=== PATIENT | female | born 1970 | race African-American/Black ===

== ENCOUNTER 2017-02-08 13:55 | Inpatient (IN) ==
[~2017-02-08 13:55] MED LIST: DIAZEPAM 5 MG TABLET PO ONE; SODIUM CHLORIDE 0.9% 1,000 ML IV SCH; ceFAZolin 1,000 MG VIAL IRRIG ONE; diphenhydrAMINE CAP 25 MG CAPSULE PO ONE
[2017-02-08] MEDS ORDERED: diphenhydrAMINE CAP 25 MG CAPSULE ONE (14:31)
[2017-02-08] MEDS ORDERED: ceFAZolin 1,000 MG VIAL ONE ×2 (14:31→16:49)
[2017-02-08] MEDS ORDERED: DIAZEPAM 5 MG TABLET ONE (14:31)
--- NOTE | 2017-02-08 14:31 | Event Note ---
Patient with sick sinus syndrome with severe significant bradycardia that is chronotropic deficient. Patient needs dual-chamber pacemaker system implantation. I have again reviewed this procedure with the patient reviewing the case procedure had be carried out and the risk. I discussed pacemaker implantation procedure with the patient. I reviewed with her the indications of the procedure as well as the basis of how the procedure itself would be carried out. I also reviewed with them the possible risks which include but not necessarily limited to surgical site bruising pain swelling or pocket hematoma that may require surgical evacuation. Discussed that the pain, swelling, bruising could be significant. Also discussed the possibility of surgical site or pocket infection that may require oral or IV antibiotics or even the possibility of surgical drainage of the pocket or even removal of the pacemaker system. Also discussed the possibility of hemothorax or pneumothorax that may require chest tube and possible blood transfusion. Also discussed the possibility of myocardial perforation that may lead to pericardial tamponade and the need for pericardiocentesis and blood transfusion. Questions were answered. She voices understanding and agrees to proceed.
--- NOTE | 2017-02-08 14:32 | History and Physical Update ---
Sedation H&P Update - History and Physical H&P was reviewed, the patient examined and there: are no changes in the patients condition since last H&P was completed. - Dictation Physical: refer to scanned H&P - Physical Exam Mental Status: alert and oriented Heart: regular rate and rhythm (Bradycardic) Lung: clear to auscultation Abdomen: within normal limits History and Physical Changes: None - Sedation Plan for Sedation: moderate Patient Consent: Procedure disscussed with patient and patinet has consented., Risks and benefits were discussed with patient,including infection,, bleeding, injury to surrounding structures, seizure, temporary nerve, Patient understands and accepts potential risks/benefits and agrees to, proceed. ASA Class: III Airway Assessment: Class III: Soft palate, base of uvula visible
--- NOTE | 2017-02-08 14:44 | XRay Report ---
Portable chest. Indication: Respiratory preoperative. Comparison: December 15, 2011. The heart and mediastinal contours are unremarkable. The pulmonary vasculature is normal. There is no consolidation, pneumothorax, or pleural effusion. The osseous structures are unremarkable. Impression: No abnormality is seen. PROCEDURE INTERPRETED AT [facility] DEPARTMENT OF RADIOLOGY Final Report Signed by: Dr. Tiffany Gee
[2017-02-08] MEDS ORDERED: MIDAZOLAM 2 MG/2 ML VIAL ONE ×3 (16:47→17:22)
[2017-02-08] MEDS ORDERED: fentaNYL 100 MCG/2 ML VIAL ONE (16:47)
[2017-02-08] MEDS ORDERED: LIDOCAINE 1% 20 ML VIAL ONE ×2 (16:47→18:04)
[2017-02-08] MEDS ORDERED: HYDROmorphone 2 MG/1 ML VIAL ONE ×2 (17:03→17:34)
[2017-02-08] MEDS ORDERED: diphenhydrAMINE 50 MG/1 ML VIAL ONE (17:22)
[2017-02-08] MEDS ORDERED: TISSUE ADHESIVE 1 EACH APPLICATOR TOP ONE (18:02)
[2017-02-08] MEDS ORDERED: ACETAMINOPHEN 325 MG TABLET PO PRN (18:35)
--- NOTE | 2017-02-08 18:35 | Operative Note ---
Date of procedure: 02/08/17 Procedure Preformed: Dual-chamber pacemaker system implantation. Surgeon / Physician: Rg Jameson Surgical Resident: Sara Brito Post-op diagnosis: same Findings: Patient with sick sinus syndrome with severe bradycardia and abnormal chronotropic response. Specimens: none sent Estimated blood loss: minimal Condition: stable Anesthesia: local, conscious sedation Disposition: floor
[2017-02-08] MEDS ORDERED: ALUMINUM/MAGNES/SIMETH MAX STR 30 ML UDCUP PO PRN (18:38)
--- NOTE | 2017-02-08 18:51 | Cardiac Pacemaker ---
- Preoperative diagnosis Date of Procedure:: 02/08/17 Preoperative Diagnosis: Documented nonreversible symptomatic bradycardia due to , sinus node dysfunction Pre-op Diagnosis: Sick sinus syndrome due to sinus node dysfunction with symptomatic bradycardia and inappropriate chronotropic response. Post-op diagnosis: same Procedure: History: Patient with persistent fatigue and dyspnea on exertion found to have severe bradycardia secondary sick sinus syndrome with inappropriate chronotropic response. Pre-Op diagnosis: Sick sinus syndrome with significant symptomatic bradycardia and inappropriate chronotropic response. Postop diagnosis: Same Procedures: 1. Left subclavian venogram. 2. Fluoroscopic positioning of right atrial and right ventricular leads. 3. Threshold testing of right atrial and right ventricular leads. 4. Surgical implantation dual-chamber pacemaker left chest. Contrast: Visipaque 10 ml. Medications: Preoperative Benadryl and Valium given orally. Lidocaine 1% SQ 50 ml; Versed 6 mgms total IVP; fentanyl 100 mcgs total IVP, Dilaudid 4 mg IVP, Benadryl 50 mg IVP, Ancef 1 gm IVPB, Ancef flush. Estimated blood loss: minimal Sponge count: Correct Pacemaker equipment: 1. Pacemaker generator: Nanoogo Advisa DR MRI, model# [id number], serial#[id number]. 2. Atrial lead: Medtronic model#5076-52, serial #[id number]. This is a bipolar active fixation lead. Sensed P-wave is 4.9 mv. At a pulse width of 0.5 ms the threshold is 1.0 volts, current 1.1 mA, resistance 998 ohms, slew rate 0.9 . 3. Ventricular lead: Medtronic model#5076-58, serial#[id number]. This is a bipolar active fixation lead. Sensed R-wave is 11.9 mv. At a pulse width of 0.5 ms the threshold is 0.4 volts, current 0.4 mA, resistance 900 ohms, slew rate 3.9 . Discription of procedure: After informed consent the patient was given preoperative medication. They were then brought to the catheterization laboratory where their upper chest was prepped and draped in the usual sterile fashion. Patient then received IV sedation. Fluoroscopy and cinematography was used to obtain a left subclavian venogram for mapping. Local anesthesia with lidocaine below the left clavicle was obtained. Sharp dissection with scalpel was then used to cut through the skin and subcutaneous tissue to the pectoralis fascia. The Metzenbaums scissors were then used to create a superior and inferior pocket with also using blunt dissection. Antibiotic sponge was placed in the pocket at this time. At this point using fluoroscopy and the subclavian venogram the subclavian vein was cannulated using needlestick and guidewires. Sheaths were then placed into the vein. Through the medial sheath the ventricular lead was advanced, through the lateral sheath the atrial lead was advanced. Under fluoroscopy the right ventricular lead was advanced into the RV outflow track and then positioned into the ventricle into a good position. Thresholds were good and they remained stable. The atrial lead was then positioned and obtained good spot with good thresholds that remained stable. Sheaths were then peeled away. The leads were then sutured in position using 2-0 Ethibond with 2 stitches on each sleeve. Antibiotic sponge was removed from the pocket and the pocket irrigated with antibiotic solution. Stylettes were completely removed from the leads and final thresholds were measured that remained stable. Pacemaker generator was then connected to the ventricular and atrial lead. Each lead was identified by its serial number and then placed into the appropriate header position. Each header set screw was tightened on the appropriate lead and then each lead was tugged on demonstrating it was well seated. Counts were correct. Pacemaker generator was then placed into the pocket and sutured in position with one stitch of 2-0 Ethibond. Pacemaker pocket was then closed using 2 layers of 3-0 Vicryl and one subreticular layer of 4-0 Vicryl. Exofin was used to seal the wound. Patient, tolerated the procedure well and there were no immediate complications. Patient was returned to their room. Implants: See above Anesthesia: local, moderate conscious sedation Surgeon / Physician: Rg Jameson Mill Helper: other (Sara RIVERA) Estimated blood loss: minimal Specimens: none sent Condition: stable Disposition: floor - Medications / Follow-up
--- NOTE | 2017-02-08 18:56 | Discharge Summary ---
<Rg Jameson - Last Filed: 02/08/17 18:53> Hospital Course - Hospital Course Hospital Course: Admitted February 08, 2017 for elective PPM implantation performed by Dr. Jameson. The following procedure performed: Procedures: 1. Left subclavian venogram. 2. Fluoroscopic positioning of right atrial and right ventricular leads. 3. Threshold testing of right atrial and right ventricular leads. 4. Surgical implantation dual-chamber pacemaker left chest. Tolerated procedure well and was returned to telemetry in stable condition. Post-operatively, developed large left pneumothorax requiring chest tube insertion, performed by Dr. Jewell. Lung expansion occurred quickly, chest tube removed after three days. Repeat CXR after chest tube removal revealed resolve of pneumothorax. Patient is anxious for release home. Having felt she met maximal medical therapy, patient is being discharged home in stable condition. One week follow-up appointment with Dr. Jameson to include interrogation of pacemaker, repeat chest x-ray. F/U appointment [address] Jewell with CXR RE: left pneumothorax Patient's blood pressure tolerated introduction of Coreg 6.25 mg orally twice daily for systolic blood pressure averaging 140s-150s. Cardiac discharge medications include the following: Coreg 6.25 mg p.o. twice daily (new) She will resume her other preadmission, noncardiac medications - Time spent with patient Time with patient DS: Greater than 30 minutes Diagnosis - Discharge Diagnosis (1) Sick sinus syndrome due to SA node dysfunction Status: Acute (2) Bradycardia Status: Acute (3) Chronotropic incompetence with sinus node dysfunction Status: Acute (4) Lupus (systemic lupus erythematosus) Status: Chronic Specialty Discharge - Follow Up or Referrals Follow up with: Wesley Jewell MD [Physician] - (F/U appointment 3 days with CXR RE: left pneumothorax) Rg Jameson MD [Physician] - 03/05/17 2:15 pm (Follow-up in 1-2 weeks with pacemaker interrogation) Discharge Plan - Discharge Data Disposition: Disch To Home/Self Care Condition at Discharge: Stable Discharge Diet: advance to your usual diet Activity: other (Do not raise left hand above she left shoulder or reach out from shoulder. Use immobilizer as prescribed.) Hygiene: other (Do not get pacemaker site wet for 4 days. May then shower in a manner so that water briefly runs over but does not directly strike the pacemaker site.) Weight Bearing at Discharge: full weight bearing Driving: not for (2 weeks) Contact your physician if you experience:: fever over 101, Redness or swelling, Shortness of breath, Bleeding, pain uncontrolled by pain medications Wound / Dressing Care Instructions: Do not apply any ointments or dressings to the pacemaker wound unless instructed to do so. Keep dry and then use water over the wound is described above. - Discharge Medications New Carvedilol [Coreg] 6.25 mg PO BID #60 tablet Continue Zolpidem Tartrate [Ambien] 10 mg PO BEDTIME Albuterol Sulfate [Ventolin HFA] 2 puff INH Q4-6H PRN PRN Reason: Shortness Of Breath/Wheezing Hydrocodone/Acetaminophen [[place] 10-325 Tablet] 1 each PO TID Levothyroxine Tab [Synthroid Tab] 100 mcg PO DAILY Gabapentin 600 mg PO TID LORazepam TAB [Ativan Tab] 1 mg PO BID Omeprazole 20 mg PO DAILY Carisoprodol 350 mg PO QID - Follow Up or Referral Follow Up: Wesley Jewell MD [Physician] - (F/U appointment 3 days with CXR RE: left pneumothorax) Rg Jameson MD [Physician] - 03/05/17 2:15 pm (Follow-up in 1-2 weeks with pacemaker interrogation) - Forms/Instructions Exam - Constitutional Vitals: Period Temp Pulse Resp BP Sys/Heredia Pulse Ox Last 24 Hr 96.1 F-97.9 F 66-85 16-20 133-175/69-84 96-99 Exam: General appearance: normal weight, no acute distress HEENT exam: normal inspection, atraumatic Neck exam: normal inspection no JVD. No carotid bruit. Trachea is in midline Respiratory/lungs exam: clear to auscultation bilaterally good air movement. Cardiovascular exam: regular rate and rhythm, no murmur or gallop or rub. No precordial lift. Chest wall exam: Left chest pacemaker site looks good and stable. GI/Abdominal exam: normal bowel sounds, soft, nontender, no abdominal bruits or pulsatile masses. Extremeties/musculoskeletal: normal inspection without edema or cyanosis. Neurological exam: alert, oriented X3, no focal deficits Psychiatric exam: normal affect, normal mood. Cognitive function is grossly normal. Skin exam: normal color, warm Discharge Results Procedures and tests throughout hospitalization: Pending Orders 02/12/17 16:00 XR chest 2V Routine Dual-chamber pacemaker system implantation successfully DS: Provider Date of admission: 02/08/2017 Primary care physician: . No PCP Attending physician on admission: Dr. Romeo Jameson Consults: 02/09/17 06:43 Consult to Physician [CONS] Routine Comment: Left pneumothorax Consulting Provider: Consult to Specialist Group: Surgery When should Consulting Provider be notified: Now Discharging clinician: Madelyn Borges Expected date of discharge: 02/08/17 <Katia Hebert - Last Filed: 02/12/17 16:30> Diagnosis - Discharge Diagnosis (1) Hypertension Status: Chronic (2) Sick sinus syndrome due to SA node dysfunction Status: Resolved (3) Bradycardia Status: Resolved (4) Lupus (systemic lupus erythematosus) Status: Chronic (5) Pneumothorax on left Status: Resolved (6) Pacemaker Status: Chronic Discharge Results - Imaging and Cardiology Procedure: Chest x-ray: report reviewed by me DS: Provider Expected date of discharge: 02/12/17 <Serge Priest - Last Filed: 02/12/17 16:34> Diagnosis - Discharge Diagnosis (1) Pneumothorax on left Status: Resolved (2) Pacemaker Status: Chronic (3) Sick sinus syndrome due to SA node dysfunction Status: Resolved (4) Lupus (systemic lupus erythematosus) Status: Chronic DS: Provider Primary care physician: . No PCP Cardiology addendum. Patient examined and chart reviewed I discussed with nurse Katia gibbons. Status post traumatic pneumothorax following pacemaker implantation 3 days ago. Chest x-ray this afternoon shows poorly expanded lung and bilateral breath sounds Pacemaker pocket clean and dry. Plan Discharge today Office visit with Dr. Jameson and pacemakerInterrogation 1 week Office visit with Dr. Smith as scheduled
[2017-02-08] MEDS ORDERED: HYDROmorphone 2 MG/1 ML VIAL IV SCH (19:00)
--- NOTE | 2017-02-08 19:14 | XRay Report ---
Portable chest. Indication: Lead placement. Comparison: February 08, 2017. The heart is normal in size. Calcific plaque is present within the aortic knob. A pacemaker has been placed. There is a small pneumothorax present at the left lung apex, measuring 15 mm in thickness. Areas of atelectasis are noted in the left lower lung field. The right lung is clear. No pleural effusion. Impression: Small left pneumothorax. Left basilar atelectasis. These findings were called to [facility]. PROCEDURE INTERPRETED AT [facility] DEPARTMENT OF RADIOLOGY Final Report Signed by: Dr. Tiffany Gee
--- NOTE | 2017-02-08 19:21 | Event Note ---
Patient has a small apical pneumothorax left chest from the pacemaker. I have already discussed this with the patient and family and may have to have a chest tube. We will check a 9 PM chest x-ray. I already discussed this with Dr. Rodas. Patient was somewhat mobile on the table which increased her risk for pneumothorax.
[2017-02-08] MEDS ORDERED: ALBUTEROL 2.5 MG/3 ML NEB RESP TX PRN (19:30)
[2017-02-08] MEDS ORDERED: NON-FORMULARY MEDICATION (Zolpidem Tartrate [Ambien] 10 MG) PO SCH (21:00)
[2017-02-08 21:06] LABS: Basophils # 0.1 10*3/uL (0.0-0.2); Basophils % 0.8 % (0.0-0.8); Eosinophils # 0.3 10*3/uL (0.0-0.87); Eosinophils % 2.5 % (0.00-10.9); Hematocrit 40.8 VOL% (35.7-47.0); Hemoglobin 13.6 GM/DL (12.0-16.0); Immature Granulocytes % 0.5 %; Immature Granulocytes Absolute 0.05 #; Lymphocytes # 3.3 10*3/uL (1.4-4.0); Lymphocytes % 32.2 % (21.3-54.2); Mean Corpuscular HGB Conc 33.3 GM/DL (32-36); Mean Corpuscular Hemoglobin 31 PG (27-34); Mean Corpuscular Volume 93.6 FL (87-102); Mean Platelet Volume 10.8 FL (9.6-12.0); Monocytes # 0.7 10*3/uL (0.11-0.8); Monocytes % 6.4 % (1.7-12.7); Neutrophils # 5.8 10*3/uL (1.4-7.4); Neutrophils % 57.6 % (38.7-73.9); Platelet Count 203 T/CUMM (130-400); Red Blood Count 4.36 MC/CUMM (3.8-5.5); Red Cell Distribution Width 14.6 % (9.3-17.3); White Blood Count 10.1 T/CUMM (4-12)
[2017-02-08 21:15] LABS: PT Patient Result 10.9 SECS
[2017-02-08 21:32] LABS: Calcium 8.7 MG/DL (8.5-10.1); Osmolality,Calculated 275.5 MOS/KG (273-304); Potassium 4.1 MMOL/L (3.5-5.1)
[2017-02-08] MEDS: GABAPENTIN 600 MG TABLET PO SCH (21:36)
[2017-02-08] MEDS: ZALEPLON 5 MG CAPSULE PO PRN (21:36)
[2017-02-08] MEDS: LORazepam 1 MG TABLET PO SCH (21:37)
--- NOTE | 2017-02-08 22:00 | Event Note ---
Chest xray without change in pneunothorax.
[2017-02-08] MEDS: CARISOPRODOL 350 MG TABLET PO SCH (22:30)
[2017-02-09] MEDS: HYDROmorphone 2 MG/1 ML VIAL IV PRN ×6 (01:00→18:43)
--- NOTE | 2017-02-09 06:50 | Cardiology Progress Note ---
Assessment and Plan (1) Sick sinus syndrome due to SA node dysfunction Status: Acute Assessment and plan: Post pacemaker implantation. Current Visit: Yes (2) Bradycardia Status: Acute Assessment and plan: Post pacemaker implantation. Current Visit: Yes (3) Chronotropic incompetence with sinus node dysfunction Status: Acute Assessment and plan: Post pacemaker implantation. Current Visit: Yes (4) Lupus (systemic lupus erythematosus) Status: Chronic Current Visit: Yes (5) Pneumothorax on left Status: Acute Assessment and plan: This is less on his progress. Will need to have chest replacement surgery. Current Visit: Yes Cardiology - PN: Subj Interval history: Patient is post pacemaker yesterday. She had a small pneumothorax yesterday after the procedure and later in the evening that had unchanged. This morning though the pneumothorax is progressed significantly. She is a little short of breath but in no distress. She otherwise is doing well post pacemaker. Leads appear to be in good position. At this time awaiting pacemaker interrogation. She will course will not be discharged today but will be monitored post chest tube placement. Exam (Progress Note) - Constitutional Vitals: Period Temp Pulse Resp BP Sys/Heredia Pulse Ox Last 24 Hr 97.2 F-98.9 F 56-77 14-18 127-177/73-90 94-100 Exam: General appearance: normal weight, no acute distress HEENT exam: normal inspection, atraumatic Neck exam: normal inspection no JVD. No carotid bruit. Trachea is in midline Respiratory/lungs exam: Decreased breath sounds left chest. Cardiovascular exam: regular rate and rhythm, no murmur or gallop or rub. No precordial lift. Chest wall exam: Left chest pacemaker site looks good and stable. GI/Abdominal exam: normal bowel sounds, soft, nontender, no abdominal bruits or pulsatile masses. Extremeties/musculoskeletal: normal inspection without edema or cyanosis. Neurological exam: alert, oriented X3, no focal deficits Psychiatric exam: normal affect, normal mood. Cognitive function is grossly normal. Skin exam: normal color, warm Result/EKG - Labs CBC & BMP: 02/08/17 20:34 02/08/17 20:34 Lab Results: I have reviewed the past 24 hour labs Labs: Laboratory Results - last 24 hr 02/08/17 02/08/17 02/08/17 20:34 20:34 20:34 WBC 10.1 RBC 4.36 Hgb 13.6 Hct 40.8 MCV 93.6 MCH 31 MCHC 33.3 RDW 14.6 Plt Count 203 MPV 10.8 Neut % (Auto) 57.6 Lymph % (Auto) 32.2 [place] % (Auto) 6.4 Eos % (Auto) 2.5 Baso % (Auto) 0.8 Neut # (Auto) 5.8 Lymph # (Auto) 3.3 [place] # (Auto) 0.7 Eos # (Auto) 0.3 Baso # (Auto) 0.1 Immature Gran % 0.5 Nucleated RBC % 0.0 Immature Gran # 0.05 Nucleated RBCs # 0.00 INR 1.0 PT Patient/Control Mix 10.9 Sodium 139 Potassium 4.1 Chloride 107 Carbon Dioxide 25 Anion Gap 11.1 BUN 9 Creatinine 0.70 GFR Calculation 121 BUN/Creatinine Ratio 12.00 Glucose 101 Calculated Osmolality 275.5 Calcium 8.7 Magnesium 2.0 - Impressions Impressions: Telemetry reveals intermittent atrial pacing. Quality Measures - VTE Contraindication to Pharmacological VTE Prophylaxis: High Risk of Bleeding Specialty Discharge - Follow Up or Referrals Follow up with: Rg Jameson MD [Physician] - 2 Weeks (Follow-up in 2 weeks with pacemaker interrogation.)
--- NOTE | 2017-02-09 07:31 | XRay Report ---
XR chest 1V portable Indication: Follow-up pneumothorax post pacemaker Comparison: Chest x-ray dated February 08, 2017 at 6:38 PM Technique: Single frontal view of the chest. Findings: Continued mild cardiomegaly. Pacemaker apparatus again demonstrated. Minimal increased size of left apical pneumothorax. Increased atelectasis within the left lung base. Visualized osseous and surrounding soft tissue structures appear grossly unchanged. Unknown linear metallic opacity projects over the right lower chest. Clinically correlate. IMPRESSION: As above. PROCEDURE INTERPRETED AT [facility] DEPARTMENT OF RADIOLOGY Final Report Signed by: Dr Mauricio Hancock
--- NOTE | 2017-02-09 08:28 | XRay Report ---
History: Lead placement Date: 02/09/2017 Study: Chest x-ray PA and lateral Comparison exam: 02/08/2017 There is a large left-sided pneumothorax. As discussed with the telemetry nursing staff by telephone at time of dictation, the floor is aware of this pneumothorax, and the surgery service has been consulted. There is compressive atelectasis of the left lung. There is no kadie mediastinal shift. Right lung is clear. There is trace pleural effusion on the left. A left subclavian dual-lead transvenous pacemaker is stable in appearance. Osseous structures are unchanged. Impression: Large left pneumothorax with passive atelectasis left lung PROCEDURE INTERPRETED AT [facility] DEPARTMENT OF RADIOLOGY Final Report Signed by: Dr. Megan Kitchen
[2017-02-09] MEDS ORDERED: LORazepam 2 MG/1 ML VIAL IV ONE (09:01)
[2017-02-09] MEDS ORDERED: ALBUTEROL 2.5 MG/3 ML NEB RESP TX ONE (09:44)
[2017-02-09] MEDS ORDERED: PANTOPRAZOLE 40 MG VIAL IV ONE (09:44)
[2017-02-09] MEDS ORDERED: DIAZEPAM 5 MG TABLET PO ONE (09:44)
[2017-02-09] MEDS: PANTOPRAZOLE 40 MG TABLET PO SCH (09:54)
[2017-02-09] MEDS ORDERED: LIDOCAINE 1%/EPI INJ 20 ML VIAL ONE (10:27)
[2017-02-09] MEDS: GABAPENTIN 600 MG TABLET PO SCH ×3 (10:31→21:32)
[2017-02-09] MEDS: LORazepam 1 MG TABLET PO SCH ×2 (10:31→21:32)
[2017-02-09] MEDS: CARISOPRODOL 350 MG TABLET PO SCH ×4 (10:32→21:32)
--- NOTE | 2017-02-09 11:19 | General Surgery Consult Note ---
Assessment and Plan (1) Pneumothorax on left Status: Acute Assessment and plan: Impression: Left pneumothorax Plan: Recommended left chest tube. Patient has not eaten today and is not in any current distress. Discussed with her doing this under light sedation in the operating room and she would like to proceed with that. Risk of the procedure including bleeding, infection, damage to surrounding structures, need for further surgery were all discussed in detail and she agrees to proceed. Current Visit: Yes History of Present Illness Chief complaint: Consult for pneumothorax History of present illness: Ms. Mobley is a 46 year old female who developed a pneumothorax after placement of left pacemaker yesterday. I was consulted this morning for large left pneumothorax. Patient states she feels short of breath. She does not appear to be in any distress. Her vital signs have been stable. Home Medications Medication Instructions Recorded Confirmed Type Albuterol Sulfate [Ventolin HFA] 2 puff INH Q4-6H PRN 02/08/17 02/08/17 History Carisoprodol 350 mg PO QID 02/08/17 02/08/17 History Gabapentin 600 mg PO TID 02/08/17 02/08/17 History Hydrocodone/Acetaminophen [[place] 1 each PO TID 02/08/17 02/08/17 History 10-325 Tablet] LORazepam TAB [Ativan Tab] 1 mg PO BID 02/08/17 02/08/17 History Levothyroxine Tab [Synthroid Tab] 100 mcg PO DAILY 02/08/17 02/08/17 History Omeprazole 20 mg PO DAILY 02/08/17 02/08/17 History Zolpidem Tartrate [Ambien] 10 mg PO BEDTIME 02/08/17 02/08/17 History Allergies Allergy/AdvReac Type Severity Reaction Status Date / Time meperidine [From Demerol] Allergy Severe ITCHING Verified 11/22/16 11:34 Medical,Surgical,& Family Hx - Medical History Cardio: History of: Cardiovascular Problems (pt stated she does not know what caused heart to be weak) Neurology: No history of: Seizures Endocrine: History of: Thyroid Disorder Rheumatology: History of;: Systemic Lupus Erythematosus Genitourinary: History of: Recurring Urinary Tract Infections (last couple weeks took bactrim) Gastrointestinal: History of: GERD Musculoskeletal: History of: Back/Neck Problems (chronic pain) Reproductive: History of: Abnormal Pap Smear (reports reason for hysterectomy), Ovarian Cysts (right and only ovary) - Surgical History Cardiac Surgeries: Patient Denies: Cardiac Catheterization Abdominal Surgeries: Surgical HX of: EGD (2016) Reproductive Surgeries: Surgical HX of;: Hysterectomy - Family History Family History: noncontributory Family History: Reports;: Family Heart Disease (grandmother at age 58 passed, uncle and first cousin age 46) - Social History Smoking Status: Current every day smoker Frequency of Alcohol Use: None Type of Drug Use: None 12 point system: reviewed and no additional remarkable complaints except as stated Exam - Constitutional Vitals: Period Temp Pulse Resp BP Sys/Heredia Pulse Ox Last 24 Hr 97.2 F-98.9 F 56-77 14-20 126-177/73-90 94-100 General appearance: no acute distress - Head Head exam: Present: normocephalic - ENT Mouth exam: Present: normal external inspection - Neck Neck exam: Present: normal inspection - Respiratory Respiratory exam: Present: other (No breath sounds on the left) - Cardiovascular Cardiovascular exam: Present: RRR - GI/Abdominal GI/Abdominal exam: Present: soft - Back Exam Back exam: Present: normal inspection - Neurological Exam Neurological exam: Present: alert, oriented X3 Speech: Present: normal - Skin Skin exam: Present: normal color Quality Measures - VTE Contraindication to Pharmacological VTE Prophylaxis: High Risk of Bleeding Results - Labs CBC & BMP: 02/08/17 20:34 02/08/17 20:34 Lab Results: I have reviewed the past 24 hour labs Specialty Discharge - Follow Up or Referrals Follow up with: Rg Jameson MD [Physician] - 2 Weeks (Follow-up in 2 weeks with pacemaker interrogation.)
--- NOTE | 2017-02-09 11:47 | Anesthesia Post-Op ---
Anesthesia Post OP - Post Ansesthetic Evaluation Patient seen in post op: Yes Resp: within normal limits CV: within normal limits Mental: within normal limits Temp: within normal limits Fepm-Ri-Mlajlilcf: within normal limits Nausea and Vomiting: within normal limits Pain: within normal limits
[2017-02-09] MEDS ORDERED: PROPOFOL 200 MG/20 ML VIAL IV ONE (11:58)
[2017-02-09] MEDS ORDERED: MIDAZOLAM 2 MG/2 ML VIAL ONE (11:58)
[2017-02-09] MEDS ORDERED: fentaNYL 100 MCG/2 ML VIAL ONE (11:59)
[2017-02-09] MEDS ORDERED: HYDROmorphone 2 MG/1 ML VIAL ONE (11:59)
--- NOTE | 2017-02-09 12:27 | EKG Report ---
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
[2017-02-09] MEDS: LEVOTHYROXINE 100 MCG TABLET PO SCH (12:42)
--- NOTE | 2017-02-09 13:01 | Operative Note ---
Date of procedure: 02/09/17 Pre-op diagnosis: Left pneumothorax Post-op diagnosis: same Procedure: Procedure performed: Placement left chest tube Procedure in detail: After informed consent was obtained, patient was taken to the operating suite lies upon the operating table. A bump was placed under the left chest and the left chest wall was prepped and draped in usual sterile fashion after monitored anesthesia have been initiated. After procedural pause local anesthetic was infiltrated in skin and subcutaneous tissue along the anterior axillary line at approximately the sixth rib. Incision made and dissection carried down to the rib. The rib was infiltrated with local anesthetic. I then bluntly dissected just over the rib encountered a carter of air. Finger sweep revealed no adhesions and I was in the thoracic cavity. Next a 24 [place] chest tube was guided alongside my finger and advanced anteriorly toward the apex. There was good moisture in the tube. It was hooked to Pleur-evac. The tube was secured with 0 silk suture. Sterile occlusive dressing applied and the patient tolerated the procedure well and was taken recovery room in stable condition. All lap and needle counts correct at the end of the case. Anesthesia: MAC, local Surgeon / Physician: Wesley Jewell Estimated blood loss: other (Less than 5 cc) Specimens: none sent Condition: stable Disposition: PACU Results - Labs CBC & BMP: 02/08/17 20:34 02/08/17 20:34 Discharge Plan - Discharge Medications No Action Zolpidem Tartrate [Ambien] 10 mg PO BEDTIME Albuterol Sulfate [Ventolin HFA] 2 puff INH Q4-6H PRN PRN Reason: Shortness Of Breath/Wheezing Hydrocodone/Acetaminophen [[place] 10-325 Tablet] 1 each PO TID Levothyroxine Tab [Synthroid Tab] 100 mcg PO DAILY Gabapentin 600 mg PO TID LORazepam TAB [Ativan Tab] 1 mg PO BID Omeprazole 20 mg PO DAILY Carisoprodol 350 mg PO QID - Follow Up or Referral Follow Up: Rg Jameson MD [Physician] - 2 Weeks (Follow-up in 2 weeks with pacemaker interrogation.) - Forms/Instructions
--- NOTE | 2017-02-09 14:16 | XRay Report ---
XR chest 1V portable Indication: Post chest tube placement Comparison: Chest x-ray dated February 09, 2017 Technique: Single frontal view of the chest. Findings: The cardiomediastinal silhouette is stable in configuration. Pacemaker apparatus again demonstrated. Interval placement of left-sided chest tube with tip overlying the upper medial left lung. No definitive residual pneumothorax. Mild left basilar atelectasis present. Visualized osseous and surrounding soft tissue structures appear grossly unchanged. IMPRESSION: As above. PROCEDURE INTERPRETED AT [facility] DEPARTMENT OF RADIOLOGY Final Report Signed by: Dr Mauricio Hancock
--- NOTE | 2017-02-09 15:39 | Event Note ---
Patient is post left chest tube placement for pneumothorax. Chest x-ray reveals the left lung is expanded nicely. Patient is stable. Appreciate Dr. Smith's assistance.
[2017-02-09] MEDS: ZALEPLON 5 MG CAPSULE PO PRN (21:31)
[2017-02-10] MEDS: HYDROmorphone 2 MG/1 ML VIAL IV PRN ×7 (00:04→17:36)
--- NOTE | 2017-02-10 08:18 | XRay Report ---
XR chest 1V portable Indication: Pneumothorax Comparison: 09 February 2017 Findings: The heart and mediastinum are stable in size and configuration. Pacemaker and chest tube are unchanged in position. No recurrent pneumothorax is seen. The pulmonary vascularity is normal in caliber. No lung infiltrates, effusions, pneumothorax or other abnormality is demonstrated. Impression: No recurrent pneumothorax or other significant changes. PROCEDURE INTERPRETED AT [facility] DEPARTMENT OF RADIOLOGY Final Report Signed by: Dr. Kelby Fatima
[2017-02-10] MEDS: CARISOPRODOL 350 MG TABLET PO SCH ×4 (08:21→20:13)
[2017-02-10] MEDS: LEVOTHYROXINE 100 MCG TABLET PO SCH (08:22)
[2017-02-10] MEDS: LORazepam 1 MG TABLET PO SCH ×2 (08:22→20:13)
[2017-02-10] MEDS: GABAPENTIN 600 MG TABLET PO SCH ×3 (08:22→20:13)
[2017-02-10] MEDS: PANTOPRAZOLE 40 MG TABLET PO SCH (08:22)
--- NOTE | 2017-02-10 10:47 | Event Note ---
46-year-old female postop day 2 placement of less chest tube for left pneumothorax received during pacemaker placement. Patient's pain is controlled and her output is low and her chest x-ray shows no pneumothorax. Will place chest tube to waterseal and repeat x-ray tomorrow. Dr. Jewell has seen and examined patient.
--- NOTE | 2017-02-10 11:01 | Cardiology Progress Note ---
Assessment and Plan (1) Pacemaker Status: Acute Assessment and plan: She is status post pacemaker implant. She did have a pneumothorax which is being managed by chest tube. Continue current treatment. Current Visit: Yes (2) Bradycardia Status: Acute Assessment and plan: Resolved with pacemaker. Current Visit: Yes (3) Chronotropic incompetence with sinus node dysfunction Status: Acute Current Visit: Yes (4) Pneumothorax on left Status: Acute Assessment and plan: Chest tube in place. Current Visit: Yes (5) Sick sinus syndrome due to SA node dysfunction Status: Acute Current Visit: Yes (6) Lupus (systemic lupus erythematosus) Status: Chronic Current Visit: Yes Cardiology - PN: Subj Interval history: The patient is doing well today. She has some soreness from the chest tube but is otherwise without complaints. A pacemaker pocket seems to be healing well. There is no evidence of problem or complication. Her pacemaker is functioning normally. Current Medications Acetaminophen (Tylenol Tab) 650 mg PO Q4H PRN PRN Reason: Fever, Headache, Mild Pain Hydrocodone Bitart/Acetaminophen ([place] 10-325) 1 tablet PO TID [facility] Last Admin: 02/10/17 08:22 Dose: 1 tablet Al Hydrox/Mg Hydrox/Simethicone (Mylanta Max Strength Liquid) 30 ml PO Q4H PRN PRN Reason: Dyspepsia Last Admin: 02/10/17 08:22 Dose: 30 ml Albuterol Sulfate (Proventil Neb) 2.5 mg RESP TX RT Q4H PRN PRN Reason: Shortness of Breath/Wheezing Carisoprodol (Soma) 350 mg PO QID [facility] Last Admin: 02/10/17 08:21 Dose: 350 mg Gabapentin (Neurontin Cap/Tab) 600 mg PO TID [facility] Last Admin: 02/10/17 08:22 Dose: 600 mg Hydromorphone HCl (Dilaudid Inj) 1 mg IV Q2H PRN PRN Reason: Pain Severe (8-10) Last Admin: 02/10/17 10:16 Dose: 1 mg Levothyroxine Sodium (Synthroid Tab) 100 mcg PO DAILY [facility] Last Admin: 02/10/17 08:22 Dose: 100 mcg Lorazepam (Ativan Tab) 1 mg PO BID [facility] Last Admin: 02/10/17 08:22 Dose: 1 mg Pantoprazole Sodium (Protonix Tab) 40 mg PO DAILY [facility] Last Admin: 02/10/17 08:22 Dose: 40 mg Zaleplon (Sonata) 10 mg PO BEDTIME PRN PRN Reason: Sleep Last Admin: 02/09/17 21:31 Dose: 10 mg Exam (Progress Note) - Constitutional Vitals: Period Temp Pulse Resp BP Sys/Heredia Pulse Ox Last 24 Hr 97.6 F-98.5 F 60-76 14-20 143-186/67-96 98-100 Exam: General: Appears well developed, well nourished, no apparent distress HEENT: Normocephalic, atraumatic Neck: Supple Neck, Midline Trachea, No JVD Cardiac: Regular rhythm, No Murmur, no gallop, no rub Lungs: Clear to auscultation, No Wheeze, Rales, Rhonchi, chest tube in place Neuro: Cranial Nerve 2-12 Intact, Motor Function Grossly Intact Abdomen: Soft, Active Bowel Sounds, No Masses, No Pulsations/Bruits Skin: Normal color, no rash Extremities: No Clubbing, No Cyanosis, No Edema, Normal Upper Extr. Pulses Musculoskeletal: No acute abnormality noted Psychiatric: The patient does not appear to be anxious or depressed Result/EKG - Labs CBC & BMP: 02/08/17 20:34 02/08/17 20:34 Lab Results: I have reviewed the past 24 hour labs - EKG EKG results: interpreted by me Quality Measures - VTE Contraindication to Pharmacological VTE Prophylaxis: High Risk of Bleeding Specialty Discharge - Follow Up or Referrals Follow up with: Rg Jameson MD [Physician] - 2 Weeks (Follow-up in 2 weeks with pacemaker interrogation.)
[2017-02-10] MEDS: ZALEPLON 5 MG CAPSULE PO PRN (21:26)
[2017-02-11] MEDS: HYDROmorphone 2 MG/1 ML VIAL IV PRN ×8 (00:17→21:00)
[2017-02-11] MEDS: LORazepam 1 MG TABLET PO SCH ×2 (08:51→20:41)
[2017-02-11] MEDS: CARISOPRODOL 350 MG TABLET PO SCH ×4 (08:51→20:42)
[2017-02-11] MEDS: LEVOTHYROXINE 100 MCG TABLET PO SCH (08:51)
[2017-02-11] MEDS: GABAPENTIN 600 MG TABLET PO SCH ×3 (08:51→20:42)
[2017-02-11] MEDS: PANTOPRAZOLE 40 MG TABLET PO SCH (08:52)
--- NOTE | 2017-02-11 09:21 | XRay Report ---
XR chest 2V Indication: Pneumothorax Comparison: 10 February 2017 Findings: The heart and mediastinum are stable in size and configuration. Chest tube overlies the left inferior pneumothorax, has been repositioned with more superior lateral curvature. No recurrent pneumothorax seen. Pacemaker device is unchanged in position. The pulmonary vascularity is normal in caliber. Bilateral lower lung pulmonary densities are present similar to previous exam. No other lung infiltrates, effusions, pneumothorax or other abnormality is demonstrated. Impression: Slight repositioning of chest tube. No other significant changes. PROCEDURE INTERPRETED AT [facility] DEPARTMENT OF RADIOLOGY Final Report Signed by: Dr. Kelby Fatima
--- NOTE | 2017-02-11 10:55 | General Surgery Progress Note ---
Assessment and Plan (1) Pneumothorax on left Status: Acute Assessment and plan: Impression: Left pneumothorax Plan: Continue chest tube to waterseal today. Recheck chest x-ray in the morning. Current Visit: Yes Subjective Patient reports: Present: no new complaints Narrative: Continues to feel well. No complaints Exam - Constitutional Vitals: Period Temp Pulse Resp BP Sys/[place]redia Pulse Ox Last 24 Hr 97.2 F-98.9 F 60-79 16-20 127-181/59-85 94-100 General appearance: no acute distress - Head Head exam: Present: normocephalic - Neck Neck exam: Present: normal inspection - Respiratory Respiratory exam: Present: clear to auscultation bilaterally, other (Chest tube in place. X-ray looks okay. There is a small air leak with forced expiration.) - Cardiovascular Cardiovascular exam: Present: RRR - GI/Abdominal GI/Abdominal exam: Present: normal bowel sounds, soft - Extremities Exam Extremities exam: Present: normal inspection - Back Exam Back exam: Present: normal inspection - Neurological Exam Neurological exam: Present: alert, oriented X3 Speech: Present: normal - Skin Skin exam: Present: normal color Results - Labs CBC & BMP: 02/08/17 20:34 02/08/17 20:34 Quality Measures - VTE Contraindication to Pharmacological VTE Prophylaxis: High Risk of Bleeding Specialty Discharge - Follow Up or Referrals Follow up with: Rg Jameson MD [Physician] - 2 Weeks (Follow-up in 2 weeks with pacemaker interrogation.)
--- NOTE | 2017-02-11 12:58 | Cardiology Progress Note ---
Assessment and Plan (1) Pacemaker Status: Acute Assessment and plan: She is status post pacemaker implant. She did have a pneumothorax which is being managed by chest tube. Continue current treatment. Current Visit: Yes (2) Bradycardia Status: Acute Assessment and plan: Resolved with pacemaker. Current Visit: Yes (3) Chronotropic incompetence with sinus node dysfunction Status: Acute Current Visit: Yes (4) Pneumothorax on left Status: Acute Assessment and plan: This has resolved with chest tube in place. Current Visit: Yes (5) Sick sinus syndrome due to SA node dysfunction Status: Acute Current Visit: Yes (6) Lupus (systemic lupus erythematosus) Status: Chronic Current Visit: Yes Cardiology - PN: Subj Interval history: The patient is doing well today. She still has some pain from the chest tube. This is generally controlled with pain medications. Pneumothorax has improved. Hopefully the chest tube can come out tomorrow. The pacemaker appears to be functioning normally. There have been no new issues overnight. Current Medications Acetaminophen (Tylenol Tab) 650 mg PO Q4H PRN PRN Reason: Fever, Headache, Mild Pain Hydrocodone Bitart/Acetaminophen ([place] 10-325) 1 tablet PO TID [facility] Last Admin: 02/11/17 08:52 Dose: 1 tablet Al Hydrox/Mg Hydrox/Simethicone (Mylanta Max Strength Liquid) 30 ml PO Q4H PRN PRN Reason: Dyspepsia Last Admin: 02/10/17 08:22 Dose: 30 ml Albuterol Sulfate (Proventil Neb) 2.5 mg RESP TX RT Q4H PRN PRN Reason: Shortness of Breath/Wheezing Carisoprodol (Soma) 350 mg PO QID [facility] Last Admin: 02/11/17 08:51 Dose: 350 mg Gabapentin (Neurontin Cap/Tab) 600 mg PO TID [facility] Last Admin: 02/11/17 08:51 Dose: 600 mg Hydromorphone HCl (Dilaudid Inj) 1 mg IV Q2H PRN PRN Reason: Pain Severe (8-10) Last Admin: 02/11/17 11:42 Dose: 1 mg Levothyroxine Sodium (Synthroid Tab) 100 mcg PO DAILY [facility] Last Admin: 02/11/17 08:51 Dose: 100 mcg Lorazepam (Ativan Tab) 1 mg PO BID [facility] Last Admin: 02/11/17 08:51 Dose: 1 mg Pantoprazole Sodium (Protonix Tab) 40 mg PO DAILY [facility] Last Admin: 02/11/17 08:52 Dose: 40 mg Zaleplon (Sonata) 10 mg PO BEDTIME PRN PRN Reason: Sleep Last Admin: 02/10/17 21:26 Dose: 10 mg Exam (Progress Note) - Constitutional Vitals: Period Temp Pulse Resp BP Sys/Heredia Pulse Ox Last 24 Hr 97.2 F-98.9 F 60-79 16-20 127-164/59-88 94-100 Exam: General: Appears well developed, well nourished, no apparent distress HEENT: Normocephalic, atraumatic Neck: Supple Neck, Midline Trachea, No JVD Cardiac: Regular rhythm, No Murmur, no gallop, no rub Lungs: Clear to auscultation, No Wheeze, Rales, Rhonchi, chest tube in place Neuro: Cranial Nerve 2-12 Intact, Motor Function Grossly Intact Abdomen: Soft, Active Bowel Sounds, No Masses, No Pulsations/Bruits Skin: Normal color, no rash Extremities: No Clubbing, No Cyanosis, No Edema, Normal Upper Extr. Pulses Musculoskeletal: No acute abnormality noted Psychiatric: The patient does not appear to be anxious or depressed Result/EKG - Labs CBC & BMP: 02/08/17 20:34 02/08/17 20:34 Lab Results: I have reviewed the past 24 hour labs - EKG EKG results: interpreted by me Quality Measures - VTE Contraindication to Pharmacological VTE Prophylaxis: High Risk of Bleeding Specialty Discharge - Follow Up or Referrals Follow up with: Rg Jameson MD [Physician] - 2 Weeks (Follow-up in 2 weeks with pacemaker interrogation.)
--- NOTE | 2017-02-12 07:28 | XRay Report ---
XR chest 2V Indication: Chest tube Comparison: 11 February 2017 Findings: The heart and mediastinum are normal in size and configuration. Chest tubes unchanged in position. No recurrent pneumothorax is seen. Pacemaker device is unchanged in position. The pulmonary vascularity is normal in caliber. Right lower lung linear densities have resolved. No other lung infiltrates, effusions, pneumothorax or other abnormality is demonstrated. Impression: Improved right lower lung linear densities. No other significant changes. PROCEDURE INTERPRETED AT [facility] DEPARTMENT OF RADIOLOGY Final Report Signed by: Dr. Kelby Fatima
[2017-02-12] MEDS: PANTOPRAZOLE 40 MG TABLET PO SCH (08:32)
[2017-02-12] MEDS: LEVOTHYROXINE 100 MCG TABLET PO SCH (08:32)
[2017-02-12] MEDS: HYDROmorphone 2 MG/1 ML VIAL IV PRN ×2 (08:32→12:00)
[2017-02-12] MEDS: CARISOPRODOL 350 MG TABLET PO SCH ×2 (08:32→14:02)
[2017-02-12] MEDS: GABAPENTIN 600 MG TABLET PO SCH ×2 (08:32→16:26)
[2017-02-12] MEDS: LORazepam 1 MG TABLET PO SCH (08:32)
--- NOTE | 2017-02-12 12:35 | Event Note ---
46-year-old female postop day 3 chest tube placement by Dr. Jewell for pneumothorax postop pacemaker placement. Chest tube is been placed to waterseal and patient did develop a small leak. The leak is now resolved and chest x-ray shows no pneumothorax. Chest tube was removed at the bedside and nonocclusive dressing applied. Chest x-ray at 1600 and if it is okay patient can be discharged home if okay with her primary service. Follow-up with Dr. Jewell in 1 week. Instructed patient that she can remove occlusive dressing in 3 days. Patient verbalized understanding. Dr. Jewell has seen and examined patient.
--- NOTE | 2017-02-12 16:19 | Cardiology Progress Note ---
Liam Currie Vanessa, RN, am scribing for, and in the presence of, Serge Priest MD 16:19. Assessment and Plan - Time spent with patient Time spent with patient: Greater than 30 minutes (1) Pneumothorax on left Status: Acute Assessment and plan: Patient developed postoperative left pneumothorax on February 08 status post dual- chamber pacemaker implant. She has since had left chest tube placement, and pneumothorax has resolved. Chest tube removed earlier per Dr. Jewell. Follow up chest x-ray at 1600 this afternoon. Current Visit: Yes (2) Pacemaker Status: Acute Assessment and plan: Initial interrogation reveals device functioning appropriately. Chest x-ray has confirmed proper position and lead placement. Pacemaker site is healing appropriately. Current Visit: Yes (3) Sick sinus syndrome due to SA node dysfunction Status: Acute Assessment and plan: This has resolved now since pacemaker implant. Current Visit: Yes (4) Lupus (systemic lupus erythematosus) Status: Chronic Assessment and plan: Chronic. This appears stable. 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 RAY SUMMARY: Ms. Mobley is a 46-year-old white female past medical history of thyroid disorder , lupus, GERD, chronic tobaccoism. She was admitted to [facility] for planned dual-chamber pacemaker implant on February 08 due to SA node dysfunction with symptomatic bradycardia, near syncope, and an appropriate chronotropic response. Dual-chamber pacemaker implanted by Dr. Ray without immediate complication. Intraoperatively, she did have a lot of movement on the procedure table postoperatively, chest x-ray revealed small apical pneumothorax of left chest. Chest x-ray and device interrogation showed appropriate pacemaker and lead placement and function. Patient had a left chest tube placed on February [address] Jewell. Since placement, left pneumothorax has shown improvement. From a cardiac standpoint, she has been stable. January: Ms. Mobley is awake and alert this morning, and she is pleasant. Reports she rested well overnight. No chest pain, shortness of breath. She is having some moderate discomfort at left chest tube insertion site. Chest x-ray this more shows resolution of right lower lung linear density and no pneumothorax. Chest tube had small leak after being placed to waterseal but leak now resolved. Chest tube was removed earlier at bedside per Dr. Jewell. Chest x-ray to evaluate for recurrent pneumothorax this afternoon at 4 PM. Left chest wall pacemaker implant site healing well with no redness, drainage, foul odor. Patient is using left upper extremity immobilizer. Afebrile, vitals stable. Sinus rhythm per telemetry monitoring with intermittent atrial pacing. Cardiology addendum Status post traumatic pneumothorax following pacemaker implantation 3 days ago. Chest x-ray later today shows no pneumothorax and complete expansion of the lung Pacemaker site clean and dry. Clear breath sounds bilaterally. Regular rhythm. Plan Home today. Office visit with Dr. Smith as scheduled per Office visit with pacemaker interrogated Dr. Ray in 1 week Home medications as outlined. Exam (Progress Note) - Constitutional Vitals: Period Temp Pulse Resp BP Sys/Heredia Pulse Ox Last 24 Hr 96.1 F-98 F 66-85 16-20 133-175/74-88 96-100 Exam: General: Appears well developed, well nourished, no apparent distress HEENT: Normocephalic, atraumatic Neck: Supple Neck, Midline Trachea, No JVD, no bruit. No tenderness. Cardiac: Regular rhythm, No Murmur, no gallop, no rub Lungs: Clear to auscultation, No Wheeze, Rales, Rhonchi, left chest tube in place. Neuro: Cranial Nerve 2-12 Intact, Motor Function Grossly Intact. No resting tremor. Abdomen: Soft, Active Bowel Sounds, No Masses, No Pulsations/Bruits Skin: Normal color, no rash. Skin is warm and dry. Extremities: No Clubbing, No Cyanosis, No Edema, Normal Upper Extr. Pulses. Normal lower extremity pulses. Musculoskeletal/chest: No acute abnormality noted. Left chest wall pacemaker implant site with dry/intact incision and healing well. Discomfort at area of left chest tube insertion site. Psychiatric: The patient does not appear to be anxious or depressed. Result/EKG - Labs CBC & BMP: 02/08/17 20:34 02/08/17 20:34 Lab Results: I have reviewed the past 24 hour labs - Diagnostic Findings Procedure: Chest x-ray: image reviewed by me, report reviewed by me (02/12/17: Resolution of right lower lung linear density. No pneumothorax. No new finding.) - EKG EKG results: interpreted by me, no acute changes EKG shows: sinus rhythm (Intermittent atrial pacing) Quality Measures - VTE Contraindication to Pharmacological VTE Prophylaxis: High Risk of Bleeding Specialty Discharge - Follow Up or Referrals Follow up with: Rg Ray MD [Physician] - 03/05/17 2:15 pm (Follow-up in 2 weeks with pacemaker interrogation.) I, Serge Priest MD, personally performed the services described in this documentation, ascribed by Migdalia Wheeler RN in my presence, and it is both accurate and complete [id number] .
[2017-02-12 16:53] VITALS: BP 136/64
--- NOTE | 2017-02-12 17:43 | XRay Report ---
History: Left pneumothorax now post chest tube removal Date: 02/12/2017 at 4:09 PM Study: Chest x-ray PA and lateral Comparison exam: 02/12/2017 at 7:21 AM The chest tube on the left has been removed. There is no convincing pneumothorax. There is stable mild cardiomegaly. The lungs and pleural spaces are clear. A left-sided dual-lead transvenous pacemaker is stable in appearance. The osseous structures are unchanged. Impression: No evidence of pneumothorax following chest tube removal. Otherwise stable exam PROCEDURE INTERPRETED AT [facility] DEPARTMENT OF RADIOLOGY Final Report Signed by: Dr. Megan Kitchen
[2017-02-12] MEDS ORDERED: CARVEDILOL 6.25 MG TABLET PO SCH (21:00)
== END 2017-02-12 16:55 | disposition home or self-care (01) | DRG 243 ==
LOC: N.CL 13:55 → N.TELEN 13:55 → OBSVTOIN 18:35 → INTOOBSV 18:35 → UNDODISIN 02-12 16:54
PROVIDERS: ADMIT Internal Medicine Cardiovascular Disease; ATTEND Internal Medicine Cardiovascular Disease

== ENCOUNTER 2017-02-27 15:57 | Inpatient (IN) ==
--- NOTE | 2017-02-27 16:45 | Ultrasound Report ---
US venous doppler UE LT Indication: Left upper extremity swelling and pain. Swelling in the left side of the neck status post pacemaker insertion 02/08/2017. Comparison: None. Technique: Using a transcutaneous probe, grayscale, color Doppler, and spectral Doppler images of the left upper extremity venous structures were captured and stored. Images both with compression and no compression were obtained where possible. The left internal jugular vein and subclavian vein were additionally interrogated. Findings: There is an oval focus of heterogeneous echotexture within the left neck base in the region of the sternomanubrial junction which measures 2.5 x 2.7 cm incomplete compressibility of the left basilic vein is demonstrated. Thrombus is suggested within the left internal jugular vein. Thrombus additionally propagates down the arm through the brachial vein. The patent segments of the venous structures imaged demonstrate normal compressibility, color flow, and phasic flow. Impression: 1. Probable hematoma sits in the left neck base and may represent sequelae of injury to one of the thyrocervical branches or one of the branches from the subclavian artery. Size and appearance suggests high-pressure sources opposed to low-pressure venous etiology. 2. Venous thrombus is noted within the left neck/internal jugular propagating into the left arm through the level of the imaged cephalic vein. Findings were discussed with Dr. Everett at the time of dictation per Dr. Courtney. 02/27/2017 4:36 PM PROCEDURE INTERPRETED AT [facility] DEPARTMENT OF RADIOLOGY Final Report Signed by: Dr. Armand Huerta
[2017-02-27] MEDS ORDERED: MAGNESIUM SULF RIDER 4 GM in PREMIX 1 EACH IV PRN (17:56)
[2017-02-27] MEDS ORDERED: ZALEPLON 5 MG CAPSULE PO PRN (17:56)
[2017-02-27] MEDS ORDERED: MAGNESIUM SULF RIDER 2 GM in PREMIX 1 EACH IV PRN (17:56)
[2017-02-27] MEDS ORDERED: ONDANSETRON 4 MG/2 ML VIAL IV PRN (17:56)
--- NOTE | 2017-02-27 18:14 | Cardiology History & Physical ---
Assessment and Plan (1) Hematoma of neck Status: Acute Assessment and plan: We attempted to get a CT of the neck and chest. Current Visit: Yes (2) Sick sinus syndrome due to SA node dysfunction Status: Chronic Assessment and plan: Post pacemaker implantation. Current Visit: No (3) Lupus (systemic lupus erythematosus) Status: Chronic Assessment and plan: Chronic issue that complicates other problems. Current Visit: No (4) Pacemaker Status: Chronic Assessment and plan: Dual-chamber pacemaker implanted recently. Current Visit: No History of Present Illness Chief complaint: Pain in left neck and arm with abnormal ultrasound History of present illness: Ms. Mobley is a 47 year old female who underwent pacemaker placement 02/08/17 for sick sinus syndrome and symptomatic severe bradycardia. The patient did well post procedure but developed a pneumothorax for which chest tube was placed. She was discharged apparently fairly well but developed pain in the left neck is arm. This started about 02/22/17. She was awakened with a left upper chest and neck pain according to her history and notes. She was seen in emergency room 02/24/17 and was evaluated and treated his muscle spasms. Today she was seen by Dr. Everett in my absence in the office and was noted to have prominence the venous structures of the chest as well as fullness in the left supraclavicular area. She was sent to the hospital for CT of the chest and neck but apparently radiologist called and discussed with Dr. Everett and it was decided that she should have an ultrasound first. Dr. Everett informed me after the ultrasound that she had thrombus apparently in her neck and chest pain probably subclavian vein and brachial vein. There was a hematoma and question of pseudoaneurysm. Was recommended to do a CT of the chest which was originally what was ordered. Dr. Everett had informed them to proceed with a CT of the chest. Dr. Everett and called me and let me know what was going on since I was risk control product liability director tonight it was my patient. Approximately 1 hour later I get a phone call from radiology ask if also to come see the patient. I ask about the CT and they said it was not being done. On my arrival to radiology the patient sitting in the waiting room and it became obvious in discussion that the patient was not getting a CT. I had to admit the patient in order to get her CT tonight. At the time the patient does have pain and tenderness of the left neck and supraclavicular area. This area is swollen. She needs evaluation for this father and we are admitting her in order to obtain that. We will also use this opportunity for pain management. Home Medications Medication Instructions Recorded Confirmed Type Albuterol Sulfate [Ventolin HFA] 2 puff INH Q4-6H PRN 02/08/17 02/24/17 History Carisoprodol 350 mg PO QID 02/08/17 02/24/17 History Gabapentin 600 mg PO TID 02/08/17 02/24/17 History Hydrocodone/Acetaminophen [[place] 1 each PO TID 02/08/17 02/24/17 History 10-325 Tablet] LORazepam TAB [Ativan Tab] 1 mg PO BID 02/08/17 02/24/17 History Levothyroxine Tab [Synthroid Tab] 100 mcg PO QAM 02/08/17 02/24/17 History Omeprazole 20 mg PO 1100 02/08/17 02/24/17 History Zolpidem Tartrate [Ambien] 10 mg PO BEDTIME 02/08/17 02/24/17 History Carvedilol [Coreg] 6.25 mg PO BID #60 tablet 02/12/17 02/24/17 Rx traMADol TAB [Ultram] 50 mg PO Q6H PRN #14 tablet 02/18/17 02/24/17 Rx Cyclobenzaprine HCl 5 mg PO TID #30 tablet 02/24/17 Rx Allergies Allergy/AdvReac Type Severity Reaction Status Date / Time meperidine [From Demerol] Allergy Severe ITCHING Verified 02/18/17 14:01 12 point system: reviewed and no additional remarkable complaints except as stated Medical,Surgical,& Family Hx - Medical History Cardio: History of: Hypertension, Pacemaker, Cardiovascular Problems (pt stated she does not know what caused heart to be weak) Neurology: No history of: Seizures Endocrine: History of: Thyroid Disorder Rheumatology: History of;: Systemic Lupus Erythematosus Genitourinary: History of: Recurring Urinary Tract Infections (last couple weeks took bactrim) Gastrointestinal: History of: GERD Musculoskeletal: History of: Back/Neck Problems (chronic pain) Reproductive: History of: Abnormal Pap Smear (reports reason for hysterectomy), Ovarian Cysts (right and only ovary) - Surgical History Cardiac Surgeries: Patient Denies: Cardiac Catheterization Abdominal Surgeries: Surgical HX of: EGD (2016) Reproductive Surgeries: Surgical HX of;: Hysterectomy - Family History Family History: Reports;: Family Heart Disease (grandmother at age 58 passed, uncle and first cousin age 46) - Social History Smoking Status: Former smoker Cardiology Physical Exam - Constitutional Exam: General appearance: normal weight, no acute distress but she is uncomfortable. Head exam: normal inspection, atraumatic Eye exam: Pupils are equal and reactive. EOMI. There is no trauma. Ear exam: Anatomically normal. Normal auditory acuity to conversation. Oral exam: No significant oral lesions. Neck exam: The patient has fullness of the left neck base and supraclavicular area. This is very tender to the patient. Respiratory exam: clear to auscultation bilaterally. No rales, rhonchi or wheezes. Cardiovascular exam: regular rate and rhythm, no murmur or gallop or rub. No precordial lift. No bruits over the major arteries. Chest wall/torso: She has tenderness in the left upper chest and supraclavicular area. Peripheral Pulses: 2+ throughout. GI/Abdominal exam: normal bowel sounds. Musculoskeletal/Extremities exam: normal inspection without edema or cyanosis. No deformities or trauma. Neurological exam: alert, oriented X3. There is no gross neurologic deficits. Psychiatric exam: normal affect, normal mood. Cognitive function is grossly intact. Skin exam: normal color, warm. Quality Measures - VTE Contraindication to Pharmacological VTE Prophylaxis: High Risk of Bleeding
[2017-02-27 19:00] LABS: Basophils # 0.1 10*3/uL (0.0-0.2); Basophils % 0.4 % (0.0-0.8); Eosinophils # 0.1 10*3/uL (0.0-0.87); Eosinophils % 0.7 % (0.00-10.9); Hematocrit 34.7 VOL% (35.7-47.0); Hemoglobin 11.8 GM/DL (12.0-16.0); Immature Granulocytes % 1.4 %; Immature Granulocytes Absolute 0.23 #; Lymphocytes # 2.6 10*3/uL (1.4-4.0); Lymphocytes % 15.5 % (21.3-54.2); Mean Corpuscular Hemoglobin 31 PG (27-34); Mean Corpuscular Volume 91.1 FL (87-102); Monocytes # 1.3 10*3/uL (0.11-0.8); Monocytes % 7.4 % (1.7-12.7); Neutrophils # 12.6 10*3/uL (1.4-7.4); Neutrophils % 74.6 % (38.7-73.9); Platelet Count 353 T/CUMM (130-400); Red Blood Count 3.81 MC/CUMM (3.8-5.5); Red Cell Distribution Width 13.6 % (9.3-17.3); White Blood Count 16.9 T/CUMM (4-12)
[2017-02-27 19:25] LABS: Calcium 9.4 MG/DL (8.5-10.1); Osmolality,Calculated 268.1 MOS/KG (273-304); Potassium 3.6 MMOL/L (3.5-5.1)
--- NOTE | 2017-02-27 20:01 | CT Report ---
CT chest w con, CT soft tissue neck w con Indication: Possible pseudoaneurysm and neck following pacemaker placement. Comparison: Doppler ultrasound of the neck and left upper extremity same date. Technique: CT of the neck and chest was performed following the administration of intravenous contrast. Multiple contiguous axial images were obtained from the mid calvarium through the upper abdomen at 3 mm intervals. Coronal and sagittal MPR series of the neck as well as the chest were provided. The CT examination was performed using one or more of the following dose reduction techniques: Automatic exposure control, adjustment of the mA and kV according to patient size, or iterative reconstruction techniques. Findings: Study is degraded by thickness of image acquisition. The left internal jugular vein demonstrates an expanded appearance with occlusive thrombus extending possibly through the brachiocephalic vein. The lower internal jugular vein is enlarged measuring up to 2 cm in transverse dimension. At or just above the level of the left carotid artery bifurcation, contrast is present within the left internal jugular vein. Adjacent the left common carotid artery, there is a mixed area of attenuation measuring up to 17 mm oblique AP dimension with difficult to determine transverse dimension secondary to positioning of the jugular vein. This could reflect the suggestive hematoma comparison ultrasound images. There is no discrete evidence of pseudoaneurysm formation. Thyrocervical trunks as well as left internal mammary artery appear patent. The left vertebral artery is patent. There is a moderately large focus of stranding anterior and lateral to the thrombosed left internal jugular vein compatible with subcutaneous hematoma. This elevates the left sternocleidomastoid muscle slightly. Bilaterally, the common carotid arteries, carotid artery bifurcations, and cervical segment ICAs demonstrate no significant abnormalities. Thyroid gland demonstrates no significant abnormality. Images through the upper chest demonstrate no acute findings. The imaged osseous structures demonstrate no significant abnormalities. Lungs are clear. No pleural effusions are present. No endobronchial lesions are demonstrated. Images obtained through the chest demonstrate termination of the pacemaker leads within the right ventricular apex and right atrium. Left ventricular hypertrophy is suggested. Trace amount of pericardial fluid is demonstrated. The esophagus demonstrates no significant abnormality. Bony structures of the chest as well as soft tissues and musculature of the chest wall excluding the region of hematoma described above within the lower neck are unremarkable. The imaged portion of the upper abdomen with the exception of cholecystectomy and nonspecific enlargement of the common bile duct appears unremarkable. Impression: 1. 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 Thrombosis of the left brachiocephalic vein is also suggested. 2. Additional subcutaneous hematoma suggested anterior and lateral to the jugular vein minimally elevating the anterior head of the sternocleidomastoid and extending into the subcutaneous layer adjacent the left sternoclavicular joint. This particular hematoma also appears to abut the left common carotid artery. 3. No evidence of pseudoaneurysm formation. 4. Not mentioned above fat stranding tracks along the left subclavian artery, which does appear patent, and could reflect additional evidence of hemorrhage or hematoma. 02/27/2017 7:41 PM PROCEDURE INTERPRETED AT [facility] DEPARTMENT OF RADIOLOGY Final Report Signed by: Dr. Armand Huerta
[2017-02-27] MEDS: HYDROmorphone 2 MG/1 ML VIAL IV PRN (22:24)
[2017-02-28] MEDS: APIXABAN 5 MG TABLET PO SCH ×2 (09:16→21:58)
[2017-02-28] MEDS: PANTOPRAZOLE 40 MG TABLET PO SCH (09:16)
[2017-02-28] MEDS ORDERED: ALBUTEROL 2.5 MG/3 ML NEB RESP TX PRN (11:32)
--- NOTE | 2017-02-28 11:36 | Cardiology Progress Note ---
<Katia Hebert E - Last Filed: 02/28/17 11:18> Assessment and Plan - Time spent with patient Time spent with patient: Greater than 30 minutes (1) DVT (deep venous thrombosis) Status: Acute Assessment and plan: SEE PLAN OF CARE LISTED BELOW Current Visit: Yes (2) Hypertension Status: Chronic Assessment and plan: SEE PLAN OF CARE LISTED BELOW Current Visit: Yes (3) Leukocytosis Status: Acute Assessment and plan: SEE PLAN OF CARE LISTED BELOW Current Visit: Yes (4) Lupus (systemic lupus erythematosus) Status: Chronic Assessment and plan: SEE PLAN OF CARE LISTED BELOW Current Visit: No (5) Pneumothorax on left Status: Resolved Current Visit: No (6) Hematoma of neck Status: Acute Assessment and plan: SEE PLAN OF CARE LISTED BELOW Current Visit: Yes Cardiology - PN: Subj Interval history: LAW ENFORCEMENT OFFICER: DR. RAY SUMMARY: Ms. Mobley, 47BF, underwent pacemaker placement 02/08/17 for sick sinus syndrome and symptomatic severe bradycardia. The patient did well post procedure but developed a large, left pneumothorax for which chest tube was placed. She was discharged home in stable condition. She did well until she began developing left neck, chest and arm pain on February 22, 2017. Patient was seen at [facility] February 27, 2017, referred to [facility] where she underwent following: Venous ultrasound left upper extremity: Probable hematoma left neck base, venous thrombus within the left neck/internal jugular propagating into the left arm to the level of the imaged cephalic vein. 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 Thrombosis of the left brachiocephalic vein also noted. Hematoma suggested anterior and lateral to the jugular vein minimally elevating the anterior head of the sternocleidomastoid and extending into the subcutaneous layer adjacent to left sternoclavicular joint. This particular hematoma also appears to abut the left common carotid artery. No evidence of pseudoaneurysm is noted. Not mentioned above fat stranding tracks along the left subclavian artery which appears patent, could reflect additional evidence of hemorrhage or hematoma. Patient has been started on Eliquis. FEBRUARY 28, 2017: Patient is doing better this morning. She tells me that her pain in her neck is more consolidated to a smaller area as is the pain in her shoulder and left chest. She feels as if she is doing better this morning that she still exquisitely tender to light touch in these areas. WBCs elevated at 16K which may be a reaction to the inflammation involved with thrombus, she is afebrile. We will check a UA however. Pain is better when she does get the pain medications and will make sure that she is being treated appropriately for such. Restarting her home medications, holding her Coreg at this point as her blood pressure will not allow for introduction. Will further discuss with Dr. Ray and await additional recommendations. ASSESSMENT/PLAN: 1. DVT - Eliquis has been initiated. May benefit from hematology workup for hypercoagulable state. 2. S/P PPM - continue current plan of care 3. UNDERLYING HYPERTENSION - usually takes Coreg but BP will not allow introduction at this point. Will adjust accordingly during hospital stay. 4. LEUKOCYTOSIS - may be related to newest findings but will check UA. 5. LUPUS - continue current plan of care. Exam (Progress Note) - Constitutional Vitals: Period Temp Pulse Resp BP Sys/Heredia Pulse Ox Last 24 Hr 96.5 F-98.4 F 70-94 17-20 90-122/39-83 94-98 Exam: General: [Appears well with no apparent distress.] [Pleasant and cooperative. ] [Appears comfortable.] HEENT: [PERRL, normocephalic, atraumatic. Mucous membranes moist. No jaundice noted. Conjunctiva moist and clear, sclerae anicteric] Neck: Left neck edema, tenderness. No thyromegaly noted. No carotid bruit appreciated Cardiac: [Regular rate and rhythm.] [No obvious murmur rub or gallop.] Left chest is tender to touch midway across the breast. Lungs: [Clear to auscultation without accessory muscle use to assist the respiratory pattern.] Oxygen in use via nasal cannula Abdomen: Soft, bowel sounds normoactive. Nontender and nondistended. No abdominal bruit or thrill noted. No masses noted. Musculoskeletal: No fluid collection. Decreased range of motion is noted. Extremities: No clubbing, cyanosis noted. [ No edema noted.] Upper extremity pulses 2+. Lower extremity pulses 2+. Capillary refill less than 3 seconds. Skin: No unusual lesions or rashes. No skin breakdown appreciated. Neuro: Awake, alert and oriented 3. Moves all extremities well without hemiparesis or paralysis. No essential tremor is appreciated. Result/EKG - Labs CBC & BMP: 02/27/17 18:50 02/27/17 18:50 Lab Results: I have reviewed the past 24 hour labs Labs: Laboratory Results - last 24 hr 02/27/17 02/27/17 02/27/17 18:50 18:50 18:50 WBC 16.9 H RBC 3.81 Hgb 11.8 L Hct 34.7 L MCV 91.1 MCH 31 MCHC 34.0 RDW 13.6 Plt Count 353 MPV 10.0 Neut % (Auto) 74.6 H Lymph % (Auto) 15.5 L [place] % (Auto) 7.4 Eos % (Auto) 0.7 Baso % (Auto) 0.4 Neut # (Auto) 12.6 H Lymph # (Auto) 2.6 [place]oup # (Auto) 1.3 H Eos # (Auto) 0.1 Baso # (Auto) 0.1 Immature Gran % 1.4 Nucleated RBC % 0.0 Immature Gran # 0.23 Nucleated RBCs # 0.00 Immature Plt Fraction 0.0 Sodium 135 L Potassium 3.6 Chloride 97 L Carbon Dioxide 30 Anion Gap 11.6 BUN 11 Creatinine 0.60 GFR Calculation 126 BUN/Creatinine Ratio 18.00 Glucose 94 Calculated Osmolality 268.1 L Calcium 9.4 Magnesium 2.2 - Diagnostic Findings Procedure: Chest x-ray: report reviewed by me, CT: report reviewed by me, Ultrasound: report reviewed by me - EKG EKG results: interpreted by me EKG shows: sinus rhythm Quality Measures - VTE Contraindication to Pharmacological VTE Prophylaxis: High Risk of Bleeding <Rg Ray - Last Filed: 02/28/17 16:24> Assessment and Plan (1) Hematoma of neck Status: Acute Current Visit: Yes (2) Sick sinus syndrome due to SA node dysfunction Status: Chronic Current Visit: No (3) Lupus (systemic lupus erythematosus) Status: Chronic Current Visit: No (4) Pacemaker Status: Chronic Current Visit: No Cardiology - PN: Subj Interval history: Patient personally interviewed and examined. Chart has been reviewed as well as the studies. I discussed his case with Katia Hebert NP. The patient is stable at this time is been started on Eliquis. We will monitor the patient at this time overnight make sure we have no bleeding issues or progressive pain. She does will discharge her tomorrow. She already has an Eliquis prescription called in to [facility]. She will keep her appointment with me next Sunday. I discussed with her and her our plans and outlined the. I outlined the findings. Exam (Progress Note) - Constitutional Vitals: Period Temp Pulse Resp BP Sys/Heredia Pulse Ox Last 24 Hr 96.5 F-98.4 F 65-94 17-20 90-130/39-83 94-98 Result/EKG - Labs CBC & BMP: 02/27/17 18:50 02/27/17 18:50 Labs: Laboratory Results - last 24 hr 02/27/17 02/27/17 02/27/17 18:50 18:50 18:50 WBC 16.9 H RBC 3.81 Hgb 11.8 L Hct 34.7 L MCV 91.1 MCH 31 MCHC 34.0 RDW 13.6 Plt Count 353 MPV 10.0 Neut % (Auto) 74.6 H Lymph % (Auto) 15.5 L [place] % (Auto) 7.4 Eos % (Auto) 0.7 Baso % (Auto) 0.4 Neut # (Auto) 12.6 H Lymph # (Auto) 2.6 Troup # (Auto) 1.3 H Eos # (Auto) 0.1 Baso # (Auto) 0.1 Immature Gran % 1.4 Nucleated RBC % 0.0 Immature Gran # 0.23 Nucleated RBCs # 0.00 Immature Plt Fraction 0.0 Sodium 135 L Potassium 3.6 Chloride 97 L Carbon Dioxide 30 Anion Gap 11.6 BUN 11 Creatinine 0.60 GFR Calculation 126 BUN/Creatinine Ratio 18.00 Glucose 94 Calculated Osmolality 268.1 L Calcium 9.4 Magnesium 2.2 Free T4 TSH 3rd Generation 02/28/17 12:32 WBC RBC Hgb Hct MCV MCH MCHC RDW Plt Count MPV Neut % (Auto) Lymph % (Auto) [place] % (Auto) Eos % (Auto) Baso % (Auto) Neut # (Auto) Lymph # (Auto) Troup # (Auto) Eos # (Auto) Baso # (Auto) Immature Gran % Nucleated RBC % Immature Gran # Nucleated RBCs # Immature Plt Fraction Sodium Potassium Chloride Carbon Dioxide Anion Gap BUN Creatinine GFR Calculation BUN/Creatinine Ratio Glucose Calculated Osmolality Calcium Magnesium Free T4 1.49 H TSH 3rd Generation 1.160
[2017-02-28] MEDS: LEVOTHYROXINE 100 MCG TABLET PO SCH (12:23)
[2017-02-28] MEDS: CARISOPRODOL 350 MG TABLET PO SCH ×3 (12:23→21:58)
[2017-02-28 13:26] LABS: Free T4 (Free Thyroxine) 1.49 NG/DL (0.76-1.46); Thyroid Stimulating Hormone 1.16 uIU/ml (0.358-3.74)
[2017-02-28] MEDS: GABAPENTIN 600 MG TABLET PO SCH ×2 (15:13→21:58)
[2017-02-28] MEDS: CYCLOBENZAPRINE 10 MG TABLET PO SCH ×2 (15:13→21:59)
[2017-02-28] MEDS: HYDROmorphone 2 MG/1 ML VIAL IV PRN (17:32)
[2017-02-28 18:53] LABS: Apearance,Urine Slightly Hazy (Clear); Bilirubin,Urine Negative (Negative); Blood, Urine Negative (Negative); Glucose,Urine (UA) Negative (Negative); Ketones,Urine 20 mg/dL (Negative); Mucus,Urine Many /LPF (Occasional); Nitrite,Urine Negative (Negative); Protein,Urine 100 MG/DL; RBC,Urine 22 /HPF (0-4); Squamous Epithelial Cell,Urine Occasional /HPF (0-10); Urine Color Amber (Yellow); Urine Specific Gravity 1.035 (1.001-1.035); WBC,Urine 32 /HPF (0-6)
[2017-02-28] MEDS ORDERED: ZALEPLON 5 MG CAPSULE PO SCH (21:00)
[2017-02-28] MEDS: LORazepam 1 MG TABLET PO SCH (21:58)
[2017-03-01 06:16] LABS: Basophils % 0.3 % (0.0-0.8); Eosinophils # 0.1 10*3/uL (0.0-0.87); Eosinophils % 1.1 % (0.00-10.9); Hematocrit 32.1 VOL% (35.7-47.0); Immature Granulocytes % 1.2 %; Immature Granulocytes Absolute 0.14 #; Lymphocytes # 2.3 10*3/uL (1.4-4.0); Lymphocytes % 20.9 % (21.3-54.2); Mean Corpuscular HGB Conc 34.3 GM/DL (32-36); Mean Corpuscular Hemoglobin 31 PG (27-34); Mean Corpuscular Volume 89.9 FL (87-102); Mean Platelet Volume 10.3 FL (9.6-12.0); Monocytes # 1.2 10*3/uL (0.11-0.8); Monocytes % 10.9 % (1.7-12.7); Neutrophils # 7.4 10*3/uL (1.4-7.4); Neutrophils % 65.6 % (38.7-73.9); Platelet Count 349 T/CUMM (130-400); Red Blood Count 3.57 MC/CUMM (3.8-5.5); Red Cell Distribution Width 13.6 % (9.3-17.3); White Blood Count 11.2 T/CUMM (4-12)
[2017-03-01 06:42] LABS: Calcium 9.2 MG/DL (8.5-10.1); Magnesium 2.4 MG/DL (1.8-2.4); Potassium 3.2 MMOL/L (3.5-5.1)
[2017-03-01] MEDS ORDERED: POTASSIUM CHLORIDE 20 MEQ TABLET PO ONE (06:59)
--- NOTE | 2017-03-01 07:02 | Event Note ---
Patient generally doing better today. She states her pain is much better. She is having little bit of swelling under her left axillary area. Her left supraclavicular area is better. This is not as tender and not as swollen. I suspect the left axilla area is secondary to a blood making his way to this area. Her blood work is stable. Her hematocrit is down just a little bit and his potassium is stable. We will get up this morning walking when she stable she can go home. We may need to refill some of her [place]. She already has a prescription for Eliquis at [facility]. She will keep her appointment with me on Sunday and will need to check her H&H and potassium then.
--- NOTE | 2017-03-01 08:06 | Physician Query Form ---
CLICK EDIT DOCUMENT TO SELECT QUERY ANSWER --> OK --> SIGN Isabella Huerta RN, CCDS Certified Clinical University Archivist W) [phone] (f) [phone] [email or web address] PROVIDERS: Make your selection(s) from the choices in EACH section by typing an "x" and enter comments in the comment section. Please use your independent medical judgment in providing your response. This request does not imply that any particular answer is desired or expected. CLINICAL INDICATORS: (Providers should not edit this section) The medical record indicates that the patient was admitted with a "Hematoma of neck", "venous thrombus within the left neck/internal jugular propagating into the left arm to the level of the imaged cephalic vein" and the patient was placed on Eliquis. Please clarify the following: ( ) The above is an inherent, integral or routinely potential/expected occurrence of surgery (not a complication) ( x) The above was an inadvertent, unintended, iatrogenic, or unexpected occurrence of surgery (complication) ( ) The above is a complication but not due to the surgery, specify cause: ( ) Other, please specify: ( ) Clinically unable to determine COMMENTS: PLEASE ALSO DOCUMENT RESPONSE IN PROGRESS NOTES AND/OR DISCHARGE SUMMARY Use of terms such as suspected, likely, or probable (associated with a specific diagnosis that is being evaluated, monitored, or treated as if it exists) are acceptable and can be restated in the discharge summary if not ruled out. MTDD
[2017-03-01] MEDS: LORazepam 1 MG TABLET PO SCH (09:21)
[2017-03-01] MEDS: CARISOPRODOL 350 MG TABLET PO SCH ×2 (09:22→13:00)
[2017-03-01] MEDS: GABAPENTIN 600 MG TABLET PO SCH (09:22)
[2017-03-01] MEDS: LEVOTHYROXINE 100 MCG TABLET PO SCH (09:22)
[2017-03-01] MEDS: CYCLOBENZAPRINE 10 MG TABLET PO SCH (09:22)
[2017-03-01] MEDS: APIXABAN 5 MG TABLET PO SCH (09:22)
[2017-03-01] MEDS: PANTOPRAZOLE 40 MG TABLET PO SCH (09:22)
--- NOTE | 2017-03-01 11:00 | Discharge Summary ---
<Katia Hebert E - Last Filed: 03/01/17 11:00> Hospital Course - Hospital Course Hospital Course: WINE STEWARD: DR. RAY SUMMARY: Ms. Mobley, 47BF, underwent pacemaker placement 02/08/17 for sick sinus syndrome and symptomatic severe bradycardia. The patient did well post procedure but developed a large, left pneumothorax for which chest tube was placed. She was discharged home in stable condition. She did well until she began developing left neck, chest and arm pain on February 22, 2017. Patient was seen at [facility] February 27, 2017, referred to [facility] where she underwent following: Venous ultrasound left upper extremity: Probable hematoma left neck base, venous thrombus within the left neck/internal jugular propagating into the left arm to the level of the imaged cephalic vein. 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 Thrombosis of the left brachiocephalic vein also noted. Hematoma suggested anterior and lateral to the jugular vein minimally elevating the anterior head of the sternocleidomastoid and extending into the subcutaneous layer adjacent to left sternoclavicular joint. This particular hematoma also appears to abut the left common carotid artery. No evidence of pseudoaneurysm is noted. Not mentioned above fat stranding tracks along the left subclavian artery which appears patent, could reflect additional evidence of hemorrhage or hematoma. Patient has been started on Eliquis. FEBRUARY 28, 2017: Patient is doing better this morning. She tells me that her pain in her neck is more consolidated to a smaller area as is the pain in her shoulder and left chest. She feels as if she is doing better this morning that she still exquisitely tender to light touch in these areas. WBCs elevated at 16K which may be a reaction to the inflammation involved with thrombus, she is afebrile. We will check a UA however. Pain is better when she does get the pain medications and will make sure that she is being treated appropriately for such. Restarting her home medications, holding her Coreg at this point as her blood pressure will not allow for introduction. Will further discuss with Dr. Ray and await additional recommendations. MARCH 01, 2017: Overnight, patient is doing better. She is not as tender. She still has a bit of swelling under her left axillary area. Dr. Ray is seen patient in believes that she is stable for discharge home. Having felt she is met maximal medical therapy, she is being discharged home in stable condition. She already has a prescription for Eliquis at [facility]. We will reinforce importance of taking this medication and picking it up today. I will give her a prescription for Mina, 30 day supply no refills. She is to keep her appointment with Dr. Ray on Sunday, March 05, 2017. Discharge medications include the following: Eliquis 5 mg orally twice daily Coreg 6.25 mg orally twice daily Mina 7.5/325 1 p.o. every 6 hours as needed moderate pain. She has been given 30 with no refills She will resume her other preadmission, noncardiac medications as well. Patient personally interviewed and examined this morning. Chart reviewed and discussed the case with Katia Hebert NP. Patient is stable from our standpoint at this time. Will follow up Sunday when she has an appointment. She is doing well her present therapy for this issue. - Time spent with patient Time with patient DS: Greater than 30 minutes Diagnosis - Discharge Diagnosis (1) DVT (deep venous thrombosis) Status: Acute (2) Hypertension Status: Chronic (3) Leukocytosis Status: Resolved (4) Lupus (systemic lupus erythematosus) Status: Chronic (5) Hematoma of neck Status: Acute Specialty Discharge - Follow Up or Referrals Follow up with: Rg Ray MD [Physician] - (Keep appointment with Dr. Ray on Sunday, March 05, [address] [facility]) Discharge Plan - Discharge Data Disposition: Disch To Home/Self Care Condition at Discharge: Stable Discharge Diet: heart healthy Activity: resume usual activities as tolerated Hygiene: no restrictions Weight Bearing at Discharge: full weight bearing Driving: not until seen by doctor Contact your physician if you experience:: fever over 101, Difficulty voiding, Redness or swelling, Nausea/Vomiting, Shortness of breath, Bleeding, pain uncontrolled by pain medications - Discharge Medications New Apixaban [Eliquis] 5 mg PO BID #60 tablet Continue Zolpidem Tartrate [Ambien] 10 mg PO BEDTIME Albuterol Sulfate [Ventolin HFA] 2 puff INH Q4-6H PRN PRN Reason: Shortness Of Breath/Wheezing Hydrocodone/Acetaminophen [Mina 10-325 Tablet] 1 each PO TID Levothyroxine Tab [Synthroid Tab] 100 mcg PO QAM Gabapentin 600 mg PO TID LORazepam TAB [Ativan Tab] 1 mg PO BID Carvedilol [Coreg] 6.25 mg PO BID #60 tablet Cyclobenzaprine HCl 5 mg PO TID #30 tablet Carisoprodol 350 mg PO QID - Follow Up or Referral Follow Up: Rg Ray MD [Physician] - (Keep appointment with Dr. Ray on Sunday, March 05, [address] [facility]) - Forms/Instructions Instructions: Apixaban (By mouth), Deep Venous Thrombosis (DC) Exam - Constitutional Vitals: Period Temp Pulse Resp BP Sys/Heredia Pulse Ox Last 24 Hr 98 F-99.3 F 71-97 16-22 107-121/64-72 95-100 Exam: General: [Appears well with no apparent distress.] [Pleasant and cooperative. ] [Appears comfortable.] HEENT: [PERRL, normocephalic, atraumatic. Mucous membranes moist. No jaundice noted. Conjunctiva moist and clear, sclerae anicteric] Neck: Left neck edema, tenderness. No thyromegaly noted. No carotid bruit appreciated Cardiac: [Regular rate and rhythm.] [No obvious murmur rub or gallop.] Left chest is tender to touch midway across the breast. Lungs: [Clear to auscultation without accessory muscle use to assist the respiratory pattern.] Oxygen in use via nasal cannula Abdomen: Soft, bowel sounds normoactive. Nontender and nondistended. No abdominal bruit or thrill noted. No masses noted. Musculoskeletal: No fluid collection. Decreased range of motion is noted. Extremities: No clubbing, cyanosis noted. [ No edema noted.] Upper extremity pulses 2+. Lower extremity pulses 2+. Capillary refill less than 3 seconds. Skin: No unusual lesions or rashes. No skin breakdown appreciated. Neuro: Awake, alert and oriented 3. Moves all extremities well without hemiparesis or paralysis. No essential tremor is appreciated. Discharge Results Procedures and tests throughout hospitalization: Pending Orders 02/28/17 Urine Culture Routine Labs on day of discharge: Labs from last 24 hours 03/01/17 03/01/17 02/28/17 05:44 05:44 18:35 WBC 11.2 D RBC 3.57 L Hgb 11.0 L Hct 32.1 L MCV 89.9 MCH 31 MCHC 34.3 RDW 13.6 Plt Count 349 MPV 10.3 Neut % (Auto) 65.6 Lymph % (Auto) 20.9 L [place] % (Auto) 10.9 Eos % (Auto) 1.1 Baso % (Auto) 0.3 Neut # (Auto) 7.4 Lymph # (Auto) 2.3 [place] # (Auto) 1.2 H Eos # (Auto) 0.1 Baso # (Auto) 0.0 Immature Gran % 1.2 Nucleated RBC % 0.0 Immature Gran # 0.14 Nucleated RBCs # 0.00 Immature Plt Fraction 0.0 Sodium 136 Potassium 3.2 L Chloride 98 Carbon Dioxide 30 Anion Gap 11.2 BUN 7 Creatinine 0.40 L GFR Calculation 143 BUN/Creatinine Ratio 17.00 Glucose 96 Calculated Osmolality 269.0 L Calcium 9.2 Magnesium 2.4 Urine Color Daniela Urine Appearance Slightly hazy Urine pH 5.0 Ur Specific [place] 1.035 Urine Protein 100 Urine Glucose (UA) Negative Urine Ketones 20 Urine Blood Negative Urine Nitrate Negative Urine Bilirubin Negative Urine Urobilinogen 4.0 H Urine Leukocytes Moderate H Urine RBC 22 Urine WBC 32 Ur Squamous Epith Cells Occasional Urine Mucus Many Ur Culture Indicated? Results to follow Preliminary micro results at discharge 02/28/17 Unknown Urine Culture - Preliminary Urine,Voided No Growth at 12 hours. - Imaging and Cardiology Procedure: Chest x-ray: report reviewed by me, Ultrasound: report reviewed by me DS: Provider Date of admission: 02/27/17 15:58 Primary care physician: Miroslava Weems DO Attending physician on admission: Queta Acosta DO Discharging clinician: Katia Hebert NP Expected date of discharge: 03/01/17 <Rg Ray - Last Filed: 03/01/17 16:40> Diagnosis - Discharge Diagnosis (1) Hematoma of neck Status: Acute (2) Sick sinus syndrome due to SA node dysfunction Status: Chronic (3) Lupus (systemic lupus erythematosus) Status: Chronic (4) Pacemaker Status: Chronic
[2017-03-01 12:21] VITALS: BP 121/66
== END 2017-03-01 13:30 | disposition home or self-care (01) | DRG 920 ==
LOC: N.ULTRA 15:57 → N.TELES 15:57 → N.SDSINP 15:58 → N.TELEN 18:27
PROVIDERS: ADMIT Internal Medicine Cardiovascular Disease; ATTEND Internal Medicine Cardiovascular Disease

== ENCOUNTER 2018-12-09 12:43 | Observation (INO) ==
[2018-12-09] MEDS ORDERED: ONDANSETRON 4 MG/2 ML VIAL IV STA (13:04)
[2018-12-09 14:11] LABS: Apearance,Urine Slightly Hazy (Clear); Bilirubin,Urine Negative (Negative); Blood, Urine Negative (Negative); Glucose,Urine (UA) Negative (Negative); Ketones,Urine 20 mg/dL (Negative); Mucus,Urine Occasional /LPF (Occasional); Nitrite,Urine Negative (Negative); Protein,Urine 30 MG/DL; RBC,Urine 1 /HPF (0-4); Squamous Epithelial Cell,Urine Few /HPF (0-10); Urine Color Yellow (Yellow); Urine Specific Gravity 1.019 (1.001-1.035); Urine Urobilinogen < 2.0 EU/DL (0.2-1.0)
[2018-12-09 14:31] LABS: Albumin 4.3 G/DL (3.4-5.0); Bilirubin,Total 1.1 MG/DL (0.2-1.0); Calcium 9.7 MG/DL (8.5-10.1); Osmolality,Calculated 267.1 MOS/KG (273-304); Total Protein 8.5 G/DL (6.4-8.3)
[2018-12-09 14:34] LABS: Basophils % 0.2 % (0.0-0.8); Eosinophils # 0.1 10*3/uL (0.0-0.87); Eosinophils % 0.8 % (0.00-10.9); Hemoglobin 13.5 GM/DL (12.0-16.0); Immature Granulocytes % 0.6 %; Immature Granulocytes Absolute 0.07 #; Lymphocytes # 1.5 10*3/uL (1.4-4.0); Mean Corpuscular HGB Conc 32.1 GM/DL (32-36); Mean Corpuscular Volume 93.1 FL (87-102); Mean Platelet Volume 9.4 FL (9.6-12.0); Monocytes % 3.6 % (1.7-12.7); Neutrophils % 82.8 % (38.7-73.9); Platelet Count 265 T/CUMM (130-400); Red Blood Count 4.51 MC/CUMM (3.8-5.5); Red Cell Distribution Width 14.6 % (9.3-17.3); White Blood Count 12.4 T/CUMM (4-12)
[2018-12-09] MEDS ORDERED: diphenhydrAMINE CAP 25 MG CAPSULE PO PRN (18:11)
[2018-12-09] MEDS ORDERED: MORPHINE 4 MG/1 ML VIAL IV PRN (18:11)
[2018-12-09] MEDS ORDERED: NICOTINE 21 MG/24 HR PATCH TRANSDERM PRN (18:11)
[2018-12-09 19:25] LABS: Risk Ratio 3.2; VLDL CHOLESTEROL 10.2 MG/DL
[2018-12-09] MEDS: ONDANSETRON 4 MG/2 ML VIAL IV PRN (20:05)
[2018-12-09] MEDS: SODIUM CHLORIDE 0.45% 1,000 ML IV SCH (20:09)
[2018-12-09] MEDS: ATORVASTATIN 80 MG TABLET PO SCH (20:10)
[2018-12-09] MEDS: HEPARIN 5,000 UNIT/1 ML VIAL SUBCUT SCH (20:10)
[2018-12-09 22:50] LABS: Barbiturates Screen,Urine Negative (Negative); Benzodiazepines Screen,Urine Negative (Negative); Cannabinoid Screen,Urine Positive (Negative); Opiate Screen,Urine Positive (Negative); Phencyclidine Screen,Urine Negative (Negative)
[2018-12-10 04:51] LABS: Basophils % 0.3 % (0.0-0.8); Eosinophils # 0.4 10*3/uL (0.0-0.87); Eosinophils % 2.3 % (0.00-10.9); Hematocrit 40.7 VOL% (35.7-47.0); Hemoglobin 13.2 GM/DL (12.0-16.0); Immature Granulocytes % 0.7 %; Immature Granulocytes Absolute 0.11 #; Lymphocytes # 3.2 10*3/uL (1.4-4.0); Lymphocytes % 20.8 % (21.3-54.2); Mean Corpuscular HGB Conc 32.4 GM/DL (32-36); Mean Corpuscular Volume 92.1 FL (87-102); Mean Platelet Volume 9.4 FL (9.6-12.0); Monocytes % 7.3 % (1.7-12.7); Neutrophils % 68.6 % (38.7-73.9); Platelet Count 273 T/CUMM (130-400); Red Blood Count 4.42 MC/CUMM (3.8-5.5); Red Cell Distribution Width 14.5 % (9.3-17.3); White Blood Count 15.3 T/CUMM (4-12)
[2018-12-10 05:18] LABS: Albumin 3.7 G/DL (3.4-5.0); Bilirubin,Total 1.1 MG/DL (0.2-1.0); Calcium 9.2 MG/DL (8.5-10.1); Osmolality,Calculated 265.2 MOS/KG (273-304); Total Protein 7.6 G/DL (6.4-8.3)
[2018-12-10] MEDS: HEPARIN 5,000 UNIT/1 ML VIAL SUBCUT SCH (05:18)
[2018-12-10] MEDS ORDERED: PANTOPRAZOLE 40 MG VIAL IV SCH (09:00)
[2018-12-10] MEDS: SODIUM CHLORIDE 0.45% 1,000 ML IV SCH ×2 (10:18→19:10)
[2018-12-10] MEDS: POTASSIUM CHLORIDE RIDER 10 MEQ in PREMIX 1 EACH IV PRN ×6 (10:19→21:58)
[2018-12-10] MEDS: LINACLOTIDE 145 MCG CAPSULE PO SCH (10:22)
[2018-12-10] MEDS: ASPIRIN EC 81 MG TABLET PO SCH (10:22)
[2018-12-10] MEDS ORDERED: HydrOXYzine PAMOATE 25 MG CAPSULE PO ONE (11:20)
[2018-12-10] MEDS: PANTOPRAZOLE 40 MG TABLET PO SCH (19:10)
[2018-12-10] MEDS: ATORVASTATIN 80 MG TABLET PO SCH (20:29)
[2018-12-10] MEDS: ONDANSETRON 4 MG/2 ML VIAL IV PRN (20:33)
[2018-12-10] MEDS ORDERED: PARoxetine 10 MG TABLET PO SCH (21:00)
[2018-12-11 05:13] LABS: Basophils % 0.3 % (0.0-0.8); Eosinophils # 0.6 10*3/uL (0.0-0.87); Eosinophils % 4.4 % (0.00-10.9); Hematocrit 40.7 VOL% (35.7-47.0); Hemoglobin 13.1 GM/DL (12.0-16.0); Immature Granulocytes % 0.5 %; Immature Granulocytes Absolute 0.07 #; Lymphocytes # 3.3 10*3/uL (1.4-4.0); Lymphocytes % 24.4 % (21.3-54.2); Mean Corpuscular HGB Conc 32.2 GM/DL (32-36); Mean Corpuscular Volume 93.3 FL (87-102); Mean Platelet Volume 9.8 FL (9.6-12.0); Neutrophils % 62.4 % (38.7-73.9); Platelet Count 266 T/CUMM (130-400); Red Blood Count 4.36 MC/CUMM (3.8-5.5); Red Cell Distribution Width 14.5 % (9.3-17.3); White Blood Count 13.5 T/CUMM (4-12)
[2018-12-11 05:38] LABS: Albumin 3.6 G/DL (3.4-5.0); Bilirubin,Total 1.2 MG/DL (0.2-1.0); Calcium 9.1 MG/DL (8.5-10.1); Osmolality,Calculated 273.5 MOS/KG (273-304); Total Protein 7.2 G/DL (6.4-8.3)
[2018-12-11] MEDS: SODIUM CHLORIDE 0.45% 1,000 ML IV SCH (07:48)
[2018-12-11] MEDS ORDERED: LIDOCAINE 2% 5 ML VIAL ONE (09:00)
[2018-12-11] MEDS ORDERED: LACTATED RINGERS 1,000 ML IV SCH (09:00)
[2018-12-11] MEDS ORDERED: PROPOFOL 200 MG/20 ML VIAL IV ONE (09:00)
[2018-12-11] MEDS: PANTOPRAZOLE 40 MG TABLET PO SCH (10:07)
[2018-12-11] MEDS: ASPIRIN EC 81 MG TABLET PO SCH (10:07)
[2018-12-11] MEDS: LINACLOTIDE 145 MCG CAPSULE PO SCH (10:07)
[2018-12-11 10:19] LABS: Double Stranded DNA Antibodies < 25.0 IU/ML
[2018-12-11 17:28] VITALS: BP 150/71
== END 2018-12-11 18:01 | disposition home or self-care (01) ==
LOC: EDBD → EDUNIT# → N.ED 12:43 → N.EDINP 16:39 → INTOOBSV 16:39 → N.3E 18:30
PROVIDERS: ADMIT Internal Medicine; ATTEND Internal Medicine

== ENCOUNTER 2021-08-28 13:20 | Inpatient (IN) ==
[2021-08-28 16:46] LABS: Alanine Aminotransferase 10 U/L (13-56); Albumin 3.7 G/DL (3.4-5.0); Alkaline Phosphatase 76 U/L (45-117); Aspartate Amino Transferase 15 U/L (0-37); Bilirubin,Total < 0.39 MG/DL (0.20-1.00); Blood Urea Nitrogen 17 MG/DL (7-18); Calcium 9.2 MG/DL (8.5-10.1); Carbon Dioxide 26 MMOL/L (21-32); Estimated Glom Filtration Rate 103 ML/MIN; Glucose 94 MG/DL (74-106); Osmolality,Calculated 276.7 MOS/KG (273-304); Potassium 3.9 MMOL/L (3.5-5.1); Sodium 138 MMOL/L (136-145); Total Protein 7.6 G/DL (6.4-8.2)
[2021-08-28 16:55] LABS: Basophils # 0.1 10*3/uL (0.0-0.2); Basophils % 0.8 % (0.0-0.8); Eosinophils # 0.3 10*3/uL (0.0-0.87); Eosinophils % 3.2 % (0.00-10.9); Hematocrit 35.7 VOL% (35.7-47.0); Hemoglobin 11.4 GM/DL (12.0-16.0); Immature Granulocytes % 0.6 %; Immature Granulocytes Absolute 0.06 #; Lymphocytes # 2.7 10*3/uL (1.4-4.0); Lymphocytes % 25.8 % (21.3-54.2); Mean Corpuscular HGB Conc 31.9 GM/DL (32-36); Mean Corpuscular Volume 93.5 FL (87-102); Mean Platelet Volume 10.2 FL (9.6-12.0); Monocytes % 8.5 % (1.7-12.7); Neutrophils % 61.1 % (38.7-73.9); Platelet Count 275 T/CUMM (130-400); Red Blood Count 3.82 MC/CUMM (3.8-5.5); Red Cell Distribution Width 14.4 % (9.3-17.3); White Blood Count 10.5 T/CUMM (4-12)
[2021-08-28 17:09] LABS: INR 0.9; PT Patient Result 10.5 SECS (10.5-12.0); Partial Thromboplastin Time 26.5 SECS (23.8-32.1)
[2021-08-28] MEDS ORDERED: ONDANSETRON 4 MG/2 ML VIAL IV STA (18:04)
[2021-08-28] MEDS ORDERED: MORPHINE 10 MG/1 ML VIAL IV STA (18:04)
[2021-08-28] MEDS ORDERED: MORPHINE 2 MG/1 ML SYRINGE ONE (18:06)
[2021-08-28] MEDS ORDERED: HEPARIN 5,000 UNIT/1 ML VIAL IV STA (18:48)
[2021-08-28] MEDS ORDERED: HEPARIN DRIP 25,000 UNITS/500 ML PREMIX IV SCH (19:00)
[2021-08-28] MEDS ORDERED: ACETAMINOPHEN 325 MG TABLET PO PRN (20:18)
[2021-08-28] MEDS ORDERED: ONDANSETRON 4 MG/2 ML VIAL IV PRN (20:18)
[2021-08-29] MEDS: MORPHINE 2 MG/1 ML SYRINGE IV PRN ×4 (00:31→22:21)
[2021-08-29 05:28] LABS: Basophils # 0.1 10*3/uL (0.0-0.2); Basophils % 0.9 % (0.0-0.8); Eosinophils # 0.4 10*3/uL (0.0-0.87); Eosinophils % 3.7 % (0.00-10.9); Hematocrit 37.5 VOL% (35.7-47.0); Immature Granulocytes % 0.3 %; Immature Granulocytes Absolute 0.03 #; Lymphocytes # 3.5 10*3/uL (1.4-4.0); Lymphocytes % 35.8 % (21.3-54.2); Mean Corpuscular Volume 92.8 FL (87-102); Mean Platelet Volume 9.7 FL (9.6-12.0); Monocytes % 8.8 % (1.7-12.7); Neutrophils % 50.5 % (38.7-73.9); Platelet Count 261 T/CUMM (130-400); Red Blood Count 4.04 MC/CUMM (3.8-5.5); Red Cell Distribution Width 14.3 % (9.3-17.3); White Blood Count 9.8 T/CUMM (4-12)
[2021-08-29 05:39] LABS: Calcium 8.7 MG/DL (8.5-10.1); Osmolality,Calculated 280.3 MOS/KG (273-304); Potassium 4.1 MMOL/L (3.5-5.1)
[2021-08-29] MEDS: PANTOPRAZOLE 40 MG TABLET PO SCH (08:39)
[2021-08-29] MEDS: GABAPENTIN 600 MG TABLET PO SCH ×2 (14:51→20:43)
[2021-08-29] MEDS: ASPIRIN CHEW 81 MG TABLET PO SCH (20:42)
[2021-08-29] MEDS: amLODIPine 5 MG TABLET PO SCH (20:42)
[2021-08-29] MEDS: ROSUVASTATIN 20 MG TABLET PO SCH (20:43)
[2021-08-29] MEDS ORDERED: CLOPIDOGREL 75 MG TABLET PO SCH (21:00)
[2021-08-29] MEDS: HEPARIN DRIP 25,000 UNITS/500 ML PREMIX IV SCH (21:58)
[2021-08-30] MEDS: MORPHINE 2 MG/1 ML SYRINGE IV PRN ×3 (03:07→21:50)
[2021-08-30 03:48] LABS: Basophils # 0.1 10*3/uL (0.0-0.2); Basophils % 0.8 % (0.0-0.8); Eosinophils # 0.3 10*3/uL (0.0-0.87); Eosinophils % 3.3 % (0.00-10.9); Hematocrit 38.2 VOL% (35.7-47.0); Hemoglobin 12.1 GM/DL (12.0-16.0); Immature Granulocytes % 0.2 %; Immature Granulocytes Absolute 0.02 #; Lymphocytes # 3.8 10*3/uL (1.4-4.0); Lymphocytes % 40.5 % (21.3-54.2); Mean Corpuscular HGB Conc 31.7 GM/DL (32-36); Mean Corpuscular Volume 92.9 FL (87-102); Mean Platelet Volume 9.8 FL (9.6-12.0); Monocytes % 8.3 % (1.7-12.7); Neutrophils % 46.9 % (38.7-73.9); Platelet Count 272 T/CUMM (130-400); Red Blood Count 4.11 MC/CUMM (3.8-5.5); Red Cell Distribution Width 14.3 % (9.3-17.3); White Blood Count 9.3 T/CUMM (4-12)
[2021-08-30 04:05] LABS: Calcium 8.8 MG/DL (8.5-10.1); Osmolality,Calculated 276.4 MOS/KG (273-304); Potassium 3.5 MMOL/L (3.5-5.1)
[2021-08-30] MEDS: SODIUM CHLORIDE 0.45% 1,000 ML IV SCH ×3 (07:44→23:58)
[2021-08-30] MEDS: hydroCHLOROthiazide 12.5 MG CAPSULE PO SCH (08:52)
[2021-08-30] MEDS: PANTOPRAZOLE 40 MG TABLET PO SCH (08:53)
[2021-08-30] MEDS: GABAPENTIN 600 MG TABLET PO SCH ×3 (08:53→21:51)
[2021-08-30] MEDS ORDERED: diphenhydrAMINE CAP 25 MG CAPSULE PO ONE (12:30)
[2021-08-30] MEDS ORDERED: DIAZEPAM 5 MG TABLET PO ONE (12:30)
[2021-08-30] MEDS ORDERED: LIDOCAINE 1% 20 ML VIAL ONE (15:24)
[2021-08-30] MEDS ORDERED: HYDROmorphone 2 MG/1 ML VIAL ONE ×2 (15:24→17:08)
[2021-08-30] MEDS ORDERED: MIDAZOLAM 2 MG/2 ML VIAL ONE (15:24)
[2021-08-30] MEDS ORDERED: NITROGLYCERIN DRIP 50 MG/250 ML BOTTLE IV ONE (15:24)
[2021-08-30] MEDS ORDERED: VERAPAMIL 5 MG/2 ML VIAL ONE (15:25)
[2021-08-30] MEDS ORDERED: HEPARIN 5,000 UNIT/1 ML VIAL ONE ×2 (15:56→17:15)
[2021-08-30] MEDS ORDERED: TIROFIBAN 5,000 MCG/100 ML PREMIX IV ONE ×2 (16:42→17:29)
[2021-08-30] MEDS: HEPARIN DRIP 25,000 UNITS/500 ML PREMIX IV SCH (20:57)
[2021-08-30] MEDS ORDERED: TIROFIBAN 5,000 MCG/100 ML PREMIX IV SCH (21:05)
[2021-08-30] MEDS: ROSUVASTATIN 20 MG TABLET PO SCH (21:51)
[2021-08-30] MEDS: amLODIPine 5 MG TABLET PO SCH (21:51)
[2021-08-30] MEDS: ASPIRIN CHEW 81 MG TABLET PO SCH (21:51)
[2021-08-31] MEDS: MORPHINE 2 MG/1 ML SYRINGE IV PRN ×3 (01:54→22:17)
[2021-08-31 05:27] LABS: Basophils # 0.1 10*3/uL (0.0-0.2); Basophils % 0.5 % (0.0-0.8); Eosinophils # 0.2 10*3/uL (0.0-0.87); Eosinophils % 1.7 % (0.00-10.9); Hematocrit 37.7 VOL% (35.7-47.0); Hemoglobin 12.2 GM/DL (12.0-16.0); Immature Granulocytes % 0.6 %; Immature Granulocytes Absolute 0.08 #; Lymphocytes # 2.4 10*3/uL (1.4-4.0); Lymphocytes % 18.1 % (21.3-54.2); Mean Corpuscular HGB Conc 32.4 GM/DL (32-36); Mean Corpuscular Volume 92.2 FL (87-102); Mean Platelet Volume 10.1 FL (9.6-12.0); Monocytes % 8.1 % (1.7-12.7); Platelet Count 284 T/CUMM (130-400); Red Blood Count 4.09 MC/CUMM (3.8-5.5); White Blood Count 13.1 T/CUMM (4-12)
[2021-08-31] MEDS: SODIUM CHLORIDE 0.45% 1,000 ML IV SCH ×3 (05:40→16:50)
[2021-08-31 05:57] LABS: Calcium 9.4 MG/DL (8.5-10.1); Osmolality,Calculated 265.2 MOS/KG (273-304); Potassium 3.5 MMOL/L (3.5-5.1)
[2021-08-31] MEDS: GABAPENTIN 600 MG TABLET PO SCH ×3 (09:51→20:28)
[2021-08-31] MEDS: PANTOPRAZOLE 40 MG TABLET PO SCH (09:51)
[2021-08-31] MEDS: hydroCHLOROthiazide 12.5 MG CAPSULE PO SCH (09:51)
[2021-08-31] MEDS ORDERED: LUBIPROSTONE 24 MCG CAPSULE PO PRN (13:04)
[2021-08-31 13:36] LABS: Bilirubin,Urine Negative (Negative); Blood, Urine Moderate mg/dL (Negative); Glucose,Urine (UA) Negative (Negative); Ketones,Urine 80 mg/dL (Negative); Nitrite,Urine Negative (Negative); Protein,Urine Negative; Urine Appearance CLEAR (Clear); Urine Color Yellow (Yellow); Urine Specific Gravity 1.014 (1.001-1.035); Urine Urobilinogen < 2.0 EU/DL (<2.0)
[2021-08-31 14:26] LABS: Mucus,Urine Occasional /LPF (Occasional); RBC,Urine 1 /HPF (0-4); Squamous Epithelial Cell,Urine Occasional /HPF (0-10)
[2021-08-31] MEDS ORDERED: ALBUTEROL 2.5 MG/3 ML NEB RESP TX PRN (15:00)
[2021-08-31] MEDS: POTASSIUM CHLORIDE 10 MEQ TABLET PO SCH (20:27)
[2021-08-31] MEDS: DULoxetine 30 MG CAPSULE PO SCH (20:27)
[2021-08-31] MEDS: ROSUVASTATIN 20 MG TABLET PO SCH (20:27)
[2021-08-31] MEDS: ASPIRIN CHEW 81 MG TABLET PO SCH (20:27)
[2021-08-31] MEDS: amLODIPine 5 MG TABLET PO SCH (20:28)
[2021-09-01] MEDS: SODIUM CHLORIDE 0.45% 1,000 ML IV SCH ×4 (00:08→22:32)
[2021-09-01] MEDS: MORPHINE 2 MG/1 ML SYRINGE IV PRN ×2 (03:28→18:22)
[2021-09-01 05:40] LABS: Basophils # 0.1 10*3/uL (0.0-0.2); Basophils % 0.4 % (0.0-0.8); Eosinophils # 0.3 10*3/uL (0.0-0.87); Eosinophils % 2.2 % (0.00-10.9); Hematocrit 37.7 VOL% (35.7-47.0); Hemoglobin 12.1 GM/DL (12.0-16.0); Immature Granulocytes % 0.7 %; Immature Granulocytes Absolute 0.09 #; Lymphocytes # 2.8 10*3/uL (1.4-4.0); Lymphocytes % 21.6 % (21.3-54.2); Mean Corpuscular HGB Conc 32.1 GM/DL (32-36); Mean Platelet Volume 10.2 FL (9.6-12.0); Monocytes % 9.6 % (1.7-12.7); Neutrophils % 65.5 % (38.7-73.9); Platelet Count 266 T/CUMM (130-400); Red Cell Distribution Width 13.6 % (9.3-17.3); White Blood Count 12.9 T/CUMM (4-12)
[2021-09-01 06:03] LABS: Calcium 9.4 MG/DL (8.5-10.1); Osmolality,Calculated 265.4 MOS/KG (273-304); Potassium 3.6 MMOL/L (3.5-5.1)
[2021-09-01] MEDS ORDERED: PHENYLEPHRINE DRIP 20 MG/250 ML PREMIX IV ONE (06:43)
[2021-09-01] MEDS ORDERED: ROCURONIUM 50 MG/5 ML VIAL IV ONE (07:00)
[2021-09-01] MEDS ORDERED: propofoL 200 MG/20 ML VIAL IV ONE (07:00)
[2021-09-01] MEDS ORDERED: LIDOCAINE 2% 5 ML VIAL ONE (07:00)
[2021-09-01] MEDS ORDERED: ETOMIDATE 40 MG/20 ML VIAL IV ONE (07:00)
[2021-09-01] MEDS ORDERED: SUFentanil 50 MCG/ML AMP ONE (07:00)
[2021-09-01] MEDS ORDERED: SEVOFLURANE 1 UNIT/15 MINUTE INH ONE ×2 (07:00→11:20)
[2021-09-01] MEDS ORDERED: TISSUE ADHESIVE 1 EACH APPLICATOR TOP ONE (07:42)
[2021-09-01] MEDS ORDERED: HEPARIN 5,000 UNIT/1 ML VIAL ONE (07:42)
[2021-09-01] MEDS ORDERED: VANCOMYCIN 1,000 MG VIAL ONE (08:30)
[2021-09-01] MEDS ORDERED: VANCOMYCIN INJ 1,000 MG in SODIUM CHLORIDE 0.9% 250 ML IV ONE (08:30)
[2021-09-01] MEDS: GABAPENTIN 600 MG TABLET PO SCH ×3 (08:49→21:03)
[2021-09-01] MEDS: hydroCHLOROthiazide 12.5 MG CAPSULE PO SCH (08:49)
[2021-09-01] MEDS: PANTOPRAZOLE 40 MG TABLET PO SCH ×2 (08:49)
[2021-09-01] MEDS ORDERED: MIDAZOLAM 2 MG/2 ML VIAL ONE (09:10)
[2021-09-01] MEDS ORDERED: LACTATED RINGERS 1,000 ML IV SCH (09:30)
[2021-09-01] MEDS ORDERED: GLYCOPYRROLATE 0.4 MG/2 ML VIAL ONE ×2 (10:02→10:26)
[2021-09-01] MEDS ORDERED: ONDANSETRON 4 MG/2 ML VIAL ONE (10:02)
[2021-09-01] MEDS ORDERED: HEPARIN 10,000 UNIT/10 ML VIAL ONE (10:02)
[2021-09-01] MEDS ORDERED: ACETAMINOPHEN INJ 1,000 MG/100 ML VIAL IV ONE (10:10)
[2021-09-01] MEDS ORDERED: NEOSTIGMINE 10 MG/10 ML VIAL ONE (10:26)
[2021-09-01] MEDS ORDERED: PROTAMINE SULFATE 50 MG/5 ML VIAL IV ONE (10:55)
[2021-09-01] MEDS ORDERED: LABETALOL 20 MG/4 ML SYRINGE IV ONE (11:15)
[2021-09-01] MEDS: DULoxetine 30 MG CAPSULE PO SCH (21:03)
[2021-09-01] MEDS: amLODIPine 5 MG TABLET PO SCH (21:03)
[2021-09-01] MEDS: ASPIRIN CHEW 81 MG TABLET PO SCH (21:03)
[2021-09-01] MEDS: POTASSIUM CHLORIDE 10 MEQ TABLET PO SCH (21:03)
[2021-09-01] MEDS: ROSUVASTATIN 20 MG TABLET PO SCH (21:03)
[2021-09-02 05:10] LABS: Basophils # 0.1 10*3/uL (0.0-0.2); Basophils % 0.4 % (0.0-0.8); Eosinophils # 0.3 10*3/uL (0.0-0.87); Eosinophils % 1.9 % (0.00-10.9); Hematocrit 32.4 VOL% (35.7-47.0); Hemoglobin 10.5 GM/DL (12.0-16.0); Immature Granulocytes % 0.5 %; Immature Granulocytes Absolute 0.07 #; Lymphocytes # 2.2 10*3/uL (1.4-4.0); Lymphocytes % 15.7 % (21.3-54.2); Mean Corpuscular HGB Conc 32.4 GM/DL (32-36); Mean Platelet Volume 9.9 FL (9.6-12.0); Monocytes % 9.4 % (1.7-12.7); Neutrophils % 72.1 % (38.7-73.9); Platelet Count 256 T/CUMM (130-400); Red Blood Count 3.52 MC/CUMM (3.8-5.5); Red Cell Distribution Width 13.7 % (9.3-17.3); White Blood Count 13.8 T/CUMM (4-12)
[2021-09-02 05:26] LABS: Calcium 9.2 MG/DL (8.5-10.1); Osmolality,Calculated 268.1 MOS/KG (273-304); Potassium 3.6 MMOL/L (3.5-5.1)
[2021-09-02] MEDS: SODIUM CHLORIDE 0.45% 1,000 ML IV SCH (06:57)
[2021-09-02] MEDS: MORPHINE 2 MG/1 ML SYRINGE IV PRN ×2 (08:34→15:20)
[2021-09-02] MEDS: GABAPENTIN 600 MG TABLET PO SCH ×3 (08:35→21:05)
[2021-09-02] MEDS: CLOPIDOGREL 75 MG TABLET PO SCH (08:35)
[2021-09-02] MEDS: hydroCHLOROthiazide 12.5 MG CAPSULE PO SCH (08:36)
[2021-09-02] MEDS: PANTOPRAZOLE 40 MG TABLET PO SCH ×2 (08:36→11:00)
[2021-09-02] MEDS ORDERED: MAGNESIUM SULF RIDER 2 GM/50 ML PREMIX IV ONE (09:37)
[2021-09-02] MEDS: MULTIVITAMIN (PRENATAL) TABLET PO SCH ×2 (15:20→21:05)
[2021-09-02] MEDS: DULoxetine 30 MG CAPSULE PO SCH (21:04)
[2021-09-02] MEDS: POTASSIUM CHLORIDE 10 MEQ TABLET PO SCH (21:04)
[2021-09-02] MEDS: ROSUVASTATIN 20 MG TABLET PO SCH (21:04)
[2021-09-02] MEDS: ASPIRIN CHEW 81 MG TABLET PO SCH (21:05)
[2021-09-02] MEDS: amLODIPine 5 MG TABLET PO SCH (21:05)
[2021-09-03] MEDS: MORPHINE 2 MG/1 ML SYRINGE IV PRN (05:18)
[2021-09-03] MEDS: CLOPIDOGREL 75 MG TABLET PO SCH (09:09)
[2021-09-03] MEDS: hydroCHLOROthiazide 12.5 MG CAPSULE PO SCH (09:09)
[2021-09-03] MEDS: GABAPENTIN 600 MG TABLET PO SCH (09:10)
[2021-09-03] MEDS: MULTIVITAMIN (PRENATAL) TABLET PO SCH (09:10)
[2021-09-03] MEDS: PANTOPRAZOLE 40 MG TABLET PO SCH (09:10)
[2021-09-03 11:39] VITALS: BP 135/84
== END 2021-09-03 13:40 | disposition home or self-care (01) | DRG 253 ==
LOC: N.ED 13:20 → N.EDINP 19:02 → N.3E 20:57 → N.TELEN 08-30 18:29
PROVIDERS: ADMIT Surgery; ATTEND Surgery